=== PATIENT | female | born 1985 | race Caucasian/White ===

== ENCOUNTER 2019-05-25 18:56 | Emergency (ER) | payer BC ==
[2019-05-25] MEDS ORDERED: Lactated Ringers 1,000 ML IV ONE (20:39)
--- NOTE | 2019-05-25 20:45 | EDM.PDOC ---
ED HPI GENERAL MEDICAL PROBLEM - General Chief Complaint: Neurological Problem Stated Complaint: HAD A SEIZURE AND NOT FEELING WELL Time Seen by Provider: 05/25/19 20:07 Source of Information: Reports: Patient, Other (Friend) History Limitations: Reports: No Limitations - History of Present Illness INITIAL COMMENTS - FREE TEXT/NARRATIVE: Mrs. Hathaway is a 34-year-old woman with a past medical history significant for epilepsy since 23 years of age, of unknown cause, along with anxiety and depression. The patient takes Depakote 1500 mg every evening, along with escitalopram and lorazepam, prescribed by a Neurologist in [place], however, the patient has not established a Neurologist since moving to this area in November 2018. She states that she has had both CTs and MRIs of her brain in the past, with the most recent MRI approximately 2012. She states that prior imaging studies have shown that she has an enlarged horn, and enlarged cerebral vein, and a benign cyst, but that none of these are thought to be the cause of her epilepsy. The patient now presents to the ED stating that she suffered an unwitnessed seizure Saturday night/Saturday morning, 05/22/2019 - 05/23/2019. Since then, she reports a decreased appetite with decreased oral intake, lateral lower back and flank pain, worse on the left since 05/24/2018, episodes of rapid palpitations, central chest pain for the last 2 hours, and left shoulder and left upper extremity numbness that developed after she arrived to the ED tonight. She also reports that she gets frequent tinnitus, and been experiencing that all day today. He reports having watery diarrhea today. She reports a 40 pound weight gain over the past 5 months. She states that she gets frequent headaches, and has one now. No recent fever, chills, cough, dyspnea, nausea, vomiting, constipation, urinary symptoms, or rash. The patient reports that she typically has a seizure about twice a month, with the most recent one, prior to the one on Saturday night, being on 05/15/2019. She states that she has been compliant with her Depakote, and that the last time she skipped a dose was probably about 2 weeks ago. She denies recenct sleep deprivation or increased stress in her life. She last smoked marijuana on . No recent excessive alcohol. The patient is an appointment to establish a PCP at [facility] on 05/27/2019. She does not currently have a Neurologist. She has not received an influenza vaccine this season, and declined an offer for one here today. - Related Data Allergies Allergy/AdvReac Type Severity Reaction Status Date / Time carbamazepine [From Tegretol] Allergy Rash Verified 05/25/19 19:09 phenytoin [From Dilantin] Allergy Rash Verified 05/25/19 19:09 dilepital Allergy Rash Uncoded 05/25/19 19:09 Home Meds: Home Meds Divalproex Sodium [Depakote] 1,500 mg PO DAILY 05/25/19 [History] Escitalopram [Lexapro] 20 mg PO DAILY 05/25/19 [History] Past Medical History Neurological History: Reports: Seizure Psychiatric History: Reports: Anxiety, Depression Social & Family History - Tobacco Use Smoking Status *Q: Current Every Day Smoker Years of Tobacco use: 11 Packs/Tins Daily: 1 - Caffeine Use Caffeine Use: Reports: Coffee, Energy Drinks, Soda - Alcohol Use Alcohol Use History: Yes Alcohol Use Frequency: Socially - Recreational Drug Use Recreational Drug Use: Yes Drug Use in Last 12 Months: Yes Recreational Drug Type: Reports: Marijuana/Hashish (last smoked 05/19/2019) - Living Situation & Occupation Living situation: Reports: (), with Family Occupation: Employed (Voice Engineer) ED ROS GENERAL - Review of Systems Review Of Systems: Comprehensive ROS is negative, except as noted in HPI. ED EXAM, GENERAL - Physical Exam Exam: See Below Exam Limited By: No Limitations General Appearance: Alert, WD/WN, No Apparent Distress Eye Exam: Bilateral Eye: EOMI, Normal Inspection, PERRL Ears: Normal External Exam, Normal Canal, Hearing Grossly Normal, Normal TMs Nose: Normal Inspection, Normal Mucosa, No Blood Throat/Mouth: Normal Inspection, Normal Lips, Normal Teeth, Normal Gums, Normal Oropharynx, Normal Voice, No Airway Compromise Head: Atraumatic, Normocephalic Neck: Normal Inspection, Supple, Non-Tender, Full Range of Motion. No: Lymphadenopathy (L), Lymphadenopathy (R) Respiratory/Chest: No Respiratory Distress, Lungs Clear, Normal Breath Sounds, No Accessory Muscle Use Cardiovascular: Normal Peripheral Pulses, Regular Rate, Rhythm, No Edema, No Gallop, No JVD, No Murmur, No Rub Peripheral Pulses: 4+: Radial (L), Radial (R) GI/Abdominal: Normal Bowel Sounds, Soft, No Organomegaly, No Distention, No Abnormal Bruit, No Mass, Tender (Mild, suprapubic only. Nontender elsewhere.) (Female) Exam: Deferred Rectal (Female) Exam: Deferred Back Exam: Normal Inspection, Full Range of Motion. No: CVA Tenderness (L), CVA Tenderness (R) Extremities: Normal Inspection, Normal Range of Motion, No Pedal Edema, Normal Capillary Refill Neurological: Alert, Oriented, CN II-XII Intact, Normal Cognition, No Motor/ Sensory Deficits Psychiatric: Flat Affect Skin Exam: Warm, Dry, Intact, Normal Color, No Rash EKG INTERPRETATION EKG Date: 05/25/19 Time: 20:54 Rhythm: NSR Rate (Beats/Min): 97 [place]: Normal P-Wave: Enlarged (LAE) QRS: Normal ST-T: Normal QT: Normal Comparison: NA - No Prior EKG Course - Vital Signs Last Recorded V/S: Last Vital Signs Temp 36.7 C 05/25/19 19:06 Pulse 102 H 05/25/19 19:06 Resp 16 05/25/19 19:06 BP 142/101 H 05/25/19 19:06 Pulse Ox 100 05/25/19 19:06 Orthostatic Blood Pressure [ 102/87 Standing] Orthostatic Blood Pressure [ 100/56 Supine] - Orders/Labs/Meds Orders: Active Orders 24 hr Category Date Time Status EKG Documentation Completion [RC] STAT Care 05/25/19 20:41 Active Orthostatic Vital Signs [RC] STAT Care 05/25/19 20:41 Active Labs: Laboratory Tests 05/25/19 05/25/19 05/25/19 Range/Units 20:49 20:49 20:49 WBC 8.64 (3.98-10.04) K/mm3 RBC 4.22 (3.98-5.22) M/mm3 Hgb 13.2 (11.2-15.7) gm/dl Hct 39.2 (34.1-44.9) % MCV 92.9 (79.4-94.8) fl MCH 31.3 (25.6-32.2) pg MCHC 33.7 (32.2-35.5) g/dl RDW Std Deviation 41.6 (36.4-46.3) fL Plt Count 269 (182-369) K/mm3 MPV 9.2 L (9.4-12.3) fl Neut % (Auto) 58.3 (34.0-71.1) % Lymph % (Auto) 25.5 (19.3-51.7) % [place] % (Auto) 13.8 H (4.7-12.5) % Eos % (Auto) 2.1 (0.7-5.8) Baso % (Auto) 0.2 (0.1-1.2) % Neut # (Auto) 5.04 (1.56-6.13) K/mm3 Lymph # (Auto) 2.20 (1.18-3.74) K/mm3 [place] # (Auto) 1.19 H (0.24-0.36) K/mm3 Eos # (Auto) 0.18 (0.04-0.36) K/mm3 Baso # (Auto) 0.02 (0.01-0.08) K/mm3 Sodium 139 (136-145) mEq/L Potassium 3.8 (3.5-5.1) mEq/L Chloride 100 (98-107) mEq/L Carbon Dioxide 26 (21-32) mEq/L Anion Gap 16.8 H (5-15) BUN 11 (7-18) mg/dL Creatinine 0.6 (0.55-1.02) mg/dL Est Cr Clr Drug Dosing 115.16 mL/min Estimated GFR (MDRD) > 60 (>60) mL/min BUN/Creatinine Ratio 18.3 H (14-18) Glucose 91 (74-106) mg/dL Calcium 9.2 (8.5-10.1) mg/dL Magnesium 2.0 (1.8-2.4) mg/dl Total Bilirubin 0.2 (0.2-1.0) mg/dL AST 26 (15-37) U/L ALT 38 (14-59) U/L Alkaline Phosphatase 47 (46-116) U/L Total Protein 8.0 (6.4-8.2) g/dl Albumin 3.9 (3.4-5.0) g/dl Globulin 4.1 gm/dL Albumin/Globulin Ratio 1.0 (1-2) TSH 3rd Generation 3.415 (0.358-3.74) uIU/mL Urine Color (Yellow) Urine Appearance (Clear) Urine pH (5.0-8.0) Ur Specific [place] (1.005-1.030) Urine Protein (Negative) Urine Glucose (UA) (Negative) Urine Ketones (Negative) Urine Occult Blood (Negative) Urine Nitrite (Negative) Urine Bilirubin (Negative) Urine Urobilinogen (0.2-1.0) Ur Leukocyte Esterase (Negative) Urine RBC (0-5) /hpf Urine WBC (0-5) /hpf Ur Squamous Epith Cells (0-5) /hpf Urine Bacteria (FEW) /hpf Urine Mucus (FEW) /hpf Urine HCG, Qual (NEGATIVE) Valproic Acid 25.0 L (50.0-100.0) ug/mL 05/25/19 05/25/19 Range/Units 22:33 22:35 WBC (3.98-10.04) K/mm3 RBC (3.98-5.22) M/mm3 Hgb (11.2-15.7) gm/dl Hct (34.1-44.9) % MCV (79.4-94.8) fl MCH (25.6-32.2) pg MCHC (32.2-35.5) g/dl RDW Std Deviation (36.4-46.3) fL Plt Count (182-369) K/mm3 MPV (9.4-12.3) fl Neut % (Auto) (34.0-71.1) % Lymph % (Auto) (19.3-51.7) % [place] % (Auto) (4.7-12.5) % Eos % (Auto) (0.7-5.8) Baso % (Auto) (0.1-1.2) % Neut # (Auto) (1.56-6.13) K/mm3 Lymph # (Auto) (1.18-3.74) K/mm3 [place] # (Auto) (0.24-0.36) K/mm3 Eos # (Auto) (0.04-0.36) K/mm3 Baso # (Auto) (0.01-0.08) K/mm3 Sodium (136-145) mEq/L Potassium (3.5-5.1) mEq/L Chloride (98-107) mEq/L Carbon Dioxide (21-32) mEq/L Anion Gap (5-15) BUN (7-18) mg/dL Creatinine (0.55-1.02) mg/dL Est Cr Clr Drug Dosing mL/min Estimated GFR (MDRD) (>60) mL/min BUN/Creatinine Ratio (14-18) Glucose (74-106) mg/dL Calcium (8.5-10.1) mg/dL Magnesium (1.8-2.4) mg/dl Total Bilirubin (0.2-1.0) mg/dL AST (15-37) U/L ALT (14-59) U/L Alkaline Phosphatase (46-116) U/L Total Protein (6.4-8.2) g/dl Albumin (3.4-5.0) g/dl Globulin gm/dL Albumin/Globulin Ratio (1-2) TSH 3rd Generation (0.358-3.74) uIU/mL Urine Color Yellow (Yellow) Urine Appearance Clear (Clear) Urine pH 7.0 (5.0-8.0) Ur Specific [place] 1.015 (1.005-1.030) Urine Protein Negative (Negative) Urine Glucose (UA) Negative (Negative) Urine Ketones Negative (Negative) Urine Occult Blood Negative (Negative) Urine Nitrite Negative (Negative) Urine Bilirubin Negative (Negative) Urine Urobilinogen 0.2 (0.2-1.0) Ur Leukocyte Esterase Negative (Negative) Urine RBC 0-5 (0-5) /hpf Urine WBC 0-5 (0-5) /hpf Ur Squamous Epith Cells 0-5 (0-5) /hpf Urine Bacteria Occasional (FEW) /hpf Urine Mucus Not seen (FEW) /hpf Urine HCG, Qual Negative (NEGATIVE) Valproic Acid (50.0-100.0) ug/mL Meds: Medications Discontinued Medications Generic Name Dose Route Start Last Admin Trade Name Freq PRN Reason Stop Dose Admin Divalproex Sodium 500 mg 05/26/19 00:00 Depakote PO 05/26/19 00:01 ONETIME ONE Divalproex Sodium 250 mg 05/26/19 00:00 Divalproex Sodium PO 05/26/19 00:01 ONETIME ONE Lactated Ringer's 1,000 mls @ 999 mls/hr 05/25/19 20:39 05/25/19 21:05 Ringers, Lactated IV 05/25/19 21:39 999 mls/hr .BOLUS ONE Administration - Re-Assessments/Exams Free Text/Narrative Re-Assessment/Exam: 05/25/19 20:40 As per the HPI, the patient has nonspecific symptoms of malaise following an epileptic seizure 3 nights ago. Her physical and neurologic examination are normal. I have ordered a workup that includes some blood work, a urinalysis, a urine test, orthostatics, and an ECG. In the meantime, the patient will receive some IV fluid. As the patient's neurologic examination is normal, I do not see an indication for a CT scan of the head at this time; I will, however, refer the patient to Neurology, who may want to obtain a baseline MRI of the patient's brain. This way, we can avoid unnecessary radiation to the patient. 05/25/19 23:07 The patient's CBC is unremarkable. Her CMP is remarkable for an anion gap slightly elevated at 16.8, but with a bicarbonate normal at 26. The remainder of her CMP is unremarkable. Her magnesium level is within normal limits at 2.0. Her TSH is within normal limits at 3.415. Her urinalysis is unremarkable. Her urine test is negative. 05/25/19 23:18 The patient is not orthostatic. 05/26/19 00:01 The patient's valproic acid level has returned subtherapeutic at 25. I have ordered 750 mg of oral Depakote. The patient may safely be discharged home, but I will recommend that she increase her daily dose from 1500 mg daily to 2000 mg daily. As above, I will refer her to Neurology in [place]. 05/26/19 00:08 Test results discussed with the patient and her friend. The patient states that she ordinarily takes her Depakote around 8:00 every evening, but, for reasons unclear, she did not take any tonight, which would explain her subtherapeutic level. I have therefore canceled the extra dose of Depakote, and am not recommending that she increase her daily dose. The remainder of her workup is unremarkable, and does not explain her generalized malaise, however, her malaise is unlikely related to her recent seizure. The patient may be fighting a viral illness. I will refer her to Neurology in [place]. Departure - Departure Time of Disposition: 00:09 Disposition: Home, Self-Care 01 Condition: Good Clinical Impression: Epileptic seizure, Malaise - Discharge Information *PRESCRIPTION DRUG MONITORING PROGRAM REVIEWED*: Not Applicable *COPY OF PRESCRIPTION DRUG MONITORING REPORT IN PATIENT KARTHIK: Not Applicable Instructions: Seizure, Adult Referrals: PCP,None [Primary Care Provider] - Forms: ED Department Discharge Additional Instructions: You were seen in the emergency room after experiencing decreased appetite, lower back and flank pain, palpitations, chest pain, left shoulder pain, left arm numbness, and ringing in your ears, following a seizure suffered Saturday night. Workup in the ER included blood work, a urinalysis, a urine test, positional blood pressure checks, and an ECG. Your entire workup was unremarkable, and does not explain the cause of your symptoms. Your valproic acid (Depakote) level was found to be subtherapeutic at 25, but this is expected, since you have not taken your Depakote tonight. Based on your history, physical exam, and ER tests, your likely suffering from a viral illness. We recommend that you follow up with Sweetie Roque, Neurology mid-level at [facility], at the next available appointment. In the meantime, continue to take your Depakote as prescribed. If any other problems, please do not hesitate to return to the ER. Sepsis Event Note - Evaluation Sepsis Screening Result: No Definite Risk - Focused Exam Vital Signs: Vital Signs Temp Pulse Resp BP Pulse Ox 05/25/19 19:06 36.7 C 102 H 16 142/101 H 100 Date Exam was Performed: 05/26/19 Time Exam was Performed: 02:25 - My Orders Last 24 Hours: My Active Orders 05/25/19 20:41 EKG Documentation Completion [RC] STAT Orthostatic Vital Signs [RC] STAT - Assessment/Plan Last 24 Hours: My Active Orders 05/25/19 20:41 EKG Documentation Completion [RC] STAT Orthostatic Vital Signs [RC] STAT
[2019-05-26] MEDS ORDERED: Divalproex Sodium Delayed-Release 250 MG Tab.CR PO ONE
[2019-05-26] MEDS ORDERED: Divalproex Sodium Delayed-Release 500 MG Tab.CR PO ONE
== END 2019-05-26 00:23 | disposition home or self-care (01) ==
LOC: JD.ED 18:56
DX: G40.909 Epilepsy, unspecified, not intractable, without status epilepticus (principal); R53.81 Other malaise; F41.9 Anxiety disorder, unspecified; F32.9 Major depressive disorder, single episode, unspecified; F17.210 Nicotine dependence, cigarettes, uncomplicated; Z88.8 Allergy status to other drugs, medicaments and biological substances; Z79.899 Other long term (current) drug therapy
CPT/HCPCS: 36415; 80053; 80164; 81001; 81025; 83735; 84443; 85025; 93005; 96360; 99284; J7120; 93010

== ENCOUNTER 2019-07-07 13:40 | Emergency (ER) | payer BC ==
--- NOTE | 2019-07-07 14:52 | EDM.PDOC ---
ED HPI GENERAL MEDICAL PROBLEM - General Chief Complaint: Neurological Problem Stated Complaint: SEIZURES X 3 DAYS/HX OF SEIZURES Time Seen by Provider: 07/07/19 13:57 Source of Information: Reports: Patient History Limitations: Reports: No Limitations - History of Present Illness INITIAL COMMENTS - FREE TEXT/NARRATIVE: The patient presents because of seizures. She has a history of seizures and she has been on depakote for years. She has not had her level checked and there has been no adjustments to her dose. She says she has gained about 40 pounds in the past few months. She says in the past few days she has had a couple seizures. They will happen at night. She will wake up sore and have abrasions on her tongue. She has not been drinking alcohol. She feels like she is getting enough sleep. She has no fever, chills, cough, chest pain, shortness of breath, abdominal pain. She just feels weak and not good. Onset: Gradual Duration: Day(s): Severity: Moderate Improves with: Reports: None Worsens with: Reports: None Associated Symptoms: Reports: No Other Symptoms Other Treatments NICKER AND BREAKER: none - Related Data Allergies Allergy/AdvReac Type Severity Reaction Status Date / Time carbamazepine [From Tegretol] Allergy Rash Verified 05/25/19 19:09 phenytoin [From Dilantin] Allergy Rash Verified 05/25/19 19:09 dilepital Allergy Rash Uncoded 05/25/19 19:09 Home Meds: Home Meds Divalproex Sodium [Depakote] 1,500 mg PO BEDTIME 05/25/19 [History] Escitalopram [Lexapro] 20 mg PO DAILY 05/25/19 [History] Past Medical History Neurological History: Reports: Seizure Other Neuro History: epilepsy Psychiatric History: Reports: Anxiety, Depression Social & Family History - Tobacco Use Smoking Status *Q: Current Every Day Smoker Years of Tobacco use: 10 Packs/Tins Daily: 0.5 - Caffeine Use Caffeine Use: Reports: Coffee, Soda - Recreational Drug Use Recreational Drug Use: No - Living Situation & Occupation Living situation: Reports: (), with Family 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[employer]) ED ROS GENERAL - Review of Systems Review Of Systems: See Below Constitutional: Reports: Weakness HEENT: Reports: No Symptoms Respiratory: Reports: No Symptoms Cardiovascular: Reports: No Symptoms Endocrine: Reports: No Symptoms GI/Abdominal: Reports: No Symptoms : Reports: No Symptoms Musculoskeletal: Reports: No Symptoms Skin: Reports: No Symptoms Neurological: Reports: Seizure - Physical Exam Exam: See Below Exam Limited By: No Limitations General Appearance: Alert, No Apparent Distress Ears: Normal External Exam Nose: Normal Inspection Head Exam: Atraumatic, Normocephalic Neck: Normal Inspection, Supple, Non-Tender Respiratory/Chest: No Respiratory Distress, Lungs Clear, Normal Breath Sounds Cardiovascular: Regular Rate, Rhythm, No Edema, No Murmur GI/Abdominal: Soft, Non-Tender, No Organomegaly, No Mass Neuro Exam (Abbreviated): Alert, Oriented, No Motor/Sensory Deficits Course - Vital Signs Last Recorded V/S: Last Vital Signs Temp 98.2 F 07/07/19 13:47 Pulse 79 07/07/19 13:47 Resp 13 07/07/19 13:47 BP 117/72 07/07/19 13:47 Pulse Ox 100 07/07/19 13:47 - Orders/Labs/Meds Orders: Active Orders 24 hr Category Date Time Status Cardiac Monitoring [RC] . DIRECTED Care 07/07/19 14:19 Active Labs: Laboratory Tests 07/07/19 07/07/19 Range/Units 14:54 14:54 WBC 7.48 (3.98-10.04) K/mm3 RBC 4.43 (3.98-5.22) M/mm3 Hgb 13.5 (11.2-15.7) gm/dl Hct 41.1 (34.1-44.9) % MCV 92.8 (79.4-94.8) fl MCH 30.5 (25.6-32.2) pg MCHC 32.8 (32.2-35.5) g/dl RDW Std Deviation 44.4 (36.4-46.3) fL Plt Count 196 (182-369) K/mm3 MPV 10.2 (9.4-12.3) fl Neut % (Auto) 59.4 (34.0-71.1) % Lymph % (Auto) 28.5 (19.3-51.7) % [place] % (Auto) 10.7 (4.7-12.5) % Eos % (Auto) 1.2 (0.7-5.8) Baso % (Auto) 0.1 (0.1-1.2) % Neut # (Auto) 4.44 (1.56-6.13) K/mm3 Lymph # (Auto) 2.13 (1.18-3.74) K/mm3 [place] # (Auto) 0.80 H (0.24-0.36) K/mm3 Eos # (Auto) 0.09 (0.04-0.36) K/mm3 Baso # (Auto) 0.01 (0.01-0.08) K/mm3 Sodium 139 (136-145) mEq/L Potassium 4.0 (3.5-5.1) mEq/L Chloride 103 (98-107) mEq/L Carbon Dioxide 26 (21-32) mEq/L Anion Gap 14.0 (5-15) BUN 15 (7-18) mg/dL Creatinine 0.6 (0.55-1.02) mg/dL Est Cr Clr Drug Dosing 110.32 mL/min Estimated GFR (MDRD) > 60 (>60) mL/min BUN/Creatinine Ratio 25.0 H (14-18) Glucose 86 (74-106) mg/dL Calcium 8.9 (8.5-10.1) mg/dL Magnesium 2.1 (1.8-2.4) mg/dl Total Bilirubin 0.3 (0.2-1.0) mg/dL AST 14 L (15-37) U/L ALT 20 (14-59) U/L Alkaline Phosphatase 44 L (46-116) U/L Total Protein 7.4 (6.4-8.2) g/dl Albumin 3.7 (3.4-5.0) g/dl Globulin 3.7 gm/dL Albumin/Globulin Ratio 1.0 (1-2) Valproic Acid 68.0 (50.0-100.0) ug/mL - Re-Assessments/Exams Free Text/Narrative Re-Assessment/Exam: 07/07/19 15:58 Her CBC and CMP look good. Her valproic acid is normal at 68. I will discharge her home. Departure - Departure Time of Disposition: 16:00 Disposition: Home, Self-Care 01 Condition: Good Clinical Impression: Epileptic seizure Qualifiers: Epilepsy type: unspecified Intractability: not intractable Status epilepticus: without status epilepticus Qualified Code(s): G40.909 - Epilepsy, unspecified, not intractable, without status epilepticus - Discharge Information *PRESCRIPTION DRUG MONITORING PROGRAM REVIEWED*: Not Applicable *COPY OF PRESCRIPTION DRUG MONITORING REPORT IN PATIENT KARTHIK: Not Applicable Referrals: PCP,None [Primary Care Provider] - Ameena Li PA-C [Physician Fastener Technologist] - 1 Week Forms: ED Department Discharge Additional Instructions: Take your medication as prescribed. Eat a well balanced diet. Get plenty of rest. Avoid alcohol like you have been doing. Follow up with Ameena Li and your neurologist. Sepsis Event Note - Evaluation Sepsis Screening Result: No Definite Risk - Focused Exam Vital Signs: Vital Signs Temp Pulse Resp BP Pulse Ox 07/07/19 13:47 98.2 F 79 13 117/72 100 Date Exam was Performed: 07/07/19 Time Exam was Performed: 15:54 - My Orders Last 24 Hours: My Active Orders 07/07/19 14:19 Cardiac Monitoring [RC] . DIRECTED - Assessment/Plan Last 24 Hours: My Active Orders 07/07/19 14:19 Cardiac Monitoring [RC] . DIRECTED
== END 2019-07-07 16:26 | disposition home or self-care (01) ==
LOC: JD.ED 13:40
DX: G40.909 Epilepsy, unspecified, not intractable, without status epilepticus (principal); F41.9 Anxiety disorder, unspecified; F32.9 Major depressive disorder, single episode, unspecified; F17.210 Nicotine dependence, cigarettes, uncomplicated; Z79.899 Other long term (current) drug therapy; Z88.8 Allergy status to other drugs, medicaments and biological substances
CPT/HCPCS: 36415; 80053; 80164; 83735; 85025; 99283; 99284

== ENCOUNTER 2019-09-07 02:13 | Emergency (ER) | payer BC, OTHER ==
[2019-09-07] MEDS ORDERED: LORazepam 1 MG Tab PO ONE (02:48)
--- NOTE | 2019-09-07 02:48 | EDM.PDOC ---
ED HPI GENERAL MEDICAL PROBLEM - General Chief Complaint: Neuro Symptoms/Deficits Stated Complaint: SEIZURE ON SATURDAY STILL FEELING OFF CHEST PAIN Time Seen by Provider: 09/07/19 02:24 Source of Information: Reports: Patient History Limitations: Reports: No Limitations - History of Present Illness INITIAL COMMENTS - FREE TEXT/NARRATIVE: Ms. Hathaway is a a pleasant 34-year-old woman with a past medical history significant for epilepsy since 23 years of age, of unknown cause, along with anxiety and depression. The patient takes Depakote 1500 mg every day, along with escitalopram. She states that she missed 1 dose of both of her medications either Saturday or of this week. The patient now presents to the ED stating that she had a witnessed seizure night, 09/03/2019. Starting Saturday morning, 09/05/2019, she developed head pressure, a burning sensation in her chest that goes into her back, tinnitus, tingling of her hands and feet, difficulty swallowing, abdominal pain , dyspnea, and lightheadedness. She states that she had similar symptoms about 1 year ago. The patient denies recent fever, chills, sore throat, ear pain, nasal or sinus congestion, cough, palpitations, nausea, vomiting, constipation, diarrhea, urinary symptoms, recent weight gain or weight loss, recent bloody bowel movements or black bowel movements, recent joint aches, headaches, or rashes. Here in the ED, the patient is found to be hemodynamically stable, afebrile, saturating 93% on room air. The patient's PCP is Dr. Sheri Waters. She does not recall the name of her Neurologist in [place]. She states that she has an appointment to see him on 11/13/2019. Chest Pain Score (Numeric/FACES): 4 - Related Data Allergies Allergy/AdvReac Type Severity Reaction Status Date / Time carbamazepine [From Tegretol] Allergy Rash Verified 09/07/19 02:22 phenytoin [From Dilantin] Allergy Rash Verified 09/07/19 02:22 dilepital Allergy Rash Uncoded 09/07/19 02:22 Home Meds: Home Meds Divalproex Sodium [Depakote] 1,500 mg PO BEDTIME 05/25/19 [History] Escitalopram [Lexapro] 20 mg PO DAILY 01/06/20 [History] Past Medical History Neurological History: Reports: Seizure Psychiatric History: Reports: Anxiety, Depression Social & Family History - Tobacco Use Smoking Status *Q: Current Every Day Smoker Years of Tobacco use: 11 Packs/Tins Daily: 0.5 - Caffeine Use Caffeine Use: Reports: Coffee, Soda - Alcohol Use Alcohol Use History: Yes Alcohol Use Frequency: Socially - Recreational Drug Use Recreational Drug Use: Yes Drug Use in Last 12 Months: Yes Recreational Drug Type: Reports: Marijuana/Hashish (smokes daily) - Living Situation & Occupation Living situation: Reports: , with Family 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 ED EXAM, GENERAL - Physical Exam Exam: See Below Exam Limited By: No Limitations General Appearance: Alert, WD/WN, No Apparent Distress Eye Exam: Bilateral Eye: EOMI, Normal Inspection, PERRL Ears: Normal External Exam, Normal Canal, Hearing Grossly Normal, Normal TMs Nose: Normal Inspection, Normal Mucosa, No Blood Throat/Mouth: Normal Inspection, Normal Lips, Normal Teeth, Normal Gums, Normal Oropharynx, Normal Voice, No Airway Compromise Head: Atraumatic, Normocephalic Neck: Normal Inspection, Supple, Non-Tender, Full Range of Motion. No: Lymphadenopathy (L), Lymphadenopathy (R) Respiratory/Chest: No Respiratory Distress, Lungs Clear, Normal Breath Sounds, No Accessory Muscle Use Cardiovascular: Normal Peripheral Pulses, Regular Rate, Rhythm, No Edema, No Gallop, No JVD, No Murmur, No Rub Peripheral Pulses: 4+: Radial (L), Radial (R) GI/Abdominal: Normal Bowel Sounds, Soft, Non-Tender, No Organomegaly, No Distention, No Abnormal Bruit, No Mass (Female) Exam: Deferred Rectal (Female) Exam: Deferred Back Exam: Normal Inspection, Full Range of Motion, NT Extremities: Normal Inspection, Normal Range of Motion, No Pedal Edema, Normal Capillary Refill Neurological: Alert, Oriented, CN II-XII Intact, Normal Cognition, No Motor/ Sensory Deficits (less than full effort to strength testing) Psychiatric: Depressed Mood Skin Exam: Warm, Dry, Intact, Normal Color, No Rash EKG INTERPRETATION EKG Date: 09/07/19 Time: 02:58 Rhythm: NSR Rate (Beats/Min): 85 [place]: Normal P-Wave: Enlarged (LAE) QRS: Normal ST-T: Normal QT: Normal Comparison: No Change (05/25/2019) Course - Vital Signs Last Recorded V/S: Last Vital Signs Temp 37.1 C 09/07/19 02:20 Pulse 93 09/07/19 02:20 Resp 13 09/07/19 02:20 BP 134/83 09/07/19 02:20 Pulse Ox 92 L 09/07/19 02:20 Orthostatic Blood Pressure [ 129/80 Standing] Orthostatic Blood Pressure [ 114/80 Supine] - Orders/Labs/Meds Orders: Active Orders 24 hr Category Date Time Status EKG Documentation Completion [RC] STAT Care 09/07/19 02:43 Active Orthostatic Vital Signs [RC] STAT Care 09/07/19 02:43 Active Chest 2V [CR] Stat Exams 09/07/19 02:43 Taken Labs: Laboratory Tests 09/07/19 09/07/19 09/07/19 Range/Units 02:56 02:56 02:56 WBC 9.94 (3.98-10.04) K/mm3 RBC 4.06 (3.98-5.22) M/mm3 Hgb 12.4 (11.2-15.7) gm/dl Hct 37.9 (34.1-44.9) % MCV 93.3 (79.4-94.8) fl MCH 30.5 (25.6-32.2) pg MCHC 32.7 (32.2-35.5) g/dl RDW Std Deviation 48.1 H (36.4-46.3) fL Plt Count 276 D (182-369) K/mm3 MPV 9.7 (9.4-12.3) fl Neutrophils % (Manual) 60 (40-60) % Band Neutrophils % 0 (0-10) % Lymphocytes % (Manual) 28 (20-40) % Atypical Lymphs % 0 % Monocytes % (Manual) 8 (2-10) % Eosinophils % (Manual) 4 (0.7-5.8) % Basophils % (Manual) 0 L (0.1-1.2) Platelet Estimate Adequate RBC Morph Comment Normal D-Dimer, Quantitative < 0.19 L (0.19-0.50) mg/L Puncture Site ABG pH (7.35-7.45) ABG pCO2 (35.0-45.0) mmHg ABG pO2 (80.0-100.0) mmHg ABG HCO3 (22.0-26.0) meq/L ABG O2 Saturation (96.0-97.0) % ABG Base Excess (-2-2.0) Reagan Test A-a Gradient mmHg O2 Delivery Device FiO2 (21.00-100.00) % Sodium 141 (136-145) mEq/L Potassium 3.6 (3.5-5.1) mEq/L Chloride 103 (98-107) mEq/L Carbon Dioxide 26 (21-32) mEq/L Anion Gap 15.6 H (5-15) BUN 9 (7-18) mg/dL Creatinine 0.6 (0.55-1.02) mg/dL Est Cr Clr Drug Dosing 115.16 mL/min Estimated GFR (MDRD) > 60 (>60) mL/min BUN/Creatinine Ratio 15.0 (14-18) Glucose 103 (74-106) mg/dL Calcium 9.0 (8.5-10.1) mg/dL Phosphorus 3.5 (2.6-4.7) mg/dL Magnesium 1.7 L (1.8-2.4) mg/dl Total Bilirubin 0.2 (0.2-1.0) mg/dL AST 13 L (15-37) U/L ALT 16 (14-59) U/L Alkaline Phosphatase 47 (46-116) U/L Troponin I < 0.017 (0.00-0.056) ng/mL NT-Pro-B Natriuret Pep (0-125) pg/mL Total Protein 7.3 (6.4-8.2) g/dl Albumin 3.6 (3.4-5.0) g/dl Globulin 3.7 gm/dL Albumin/Globulin Ratio 1.0 (1-2) TSH 3rd Generation 4.912 H (0.358-3.74) uIU/mL Urine Color (Yellow) Urine Appearance (Clear) Urine pH (5.0-8.0) Ur Specific [place] (1.005-1.030) Urine Protein (Negative) Urine Glucose (UA) (Negative) Urine Ketones (Negative) Urine Occult Blood (Negative) Urine Nitrite (Negative) Urine Bilirubin (Negative) Urine Urobilinogen (0.2-1.0) Ur Leukocyte Esterase (Negative) Urine RBC (0-5) /hpf Urine WBC (0-5) /hpf Ur Squamous Epith Cells (0-5) /hpf Urine Bacteria (FEW) /hpf Urine Mucus (FEW) /hpf Urine HCG, Qual (NEGATIVE) Valproic Acid 72.5 (50.0-100.0) ug/mL 09/07/19 09/07/19 09/07/19 Range/Units 02:56 03:05 03:14 WBC (3.98-10.04) K/mm3 RBC (3.98-5.22) M/mm3 Hgb (11.2-15.7) gm/dl Hct (34.1-44.9) % MCV (79.4-94.8) fl MCH (25.6-32.2) pg MCHC (32.2-35.5) g/dl RDW Std Deviation (36.4-46.3) fL Plt Count (182-369) K/mm3 MPV (9.4-12.3) fl Neutrophils % (Manual) (40-60) % Band Neutrophils % (0-10) % Lymphocytes % (Manual) (20-40) % Atypical Lymphs % % Monocytes % (Manual) (2-10) % Eosinophils % (Manual) (0.7-5.8) % Basophils % (Manual) (0.1-1.2) Platelet Estimate RBC Morph Comment D-Dimer, Quantitative (0.19-0.50) mg/L Puncture Site Lt radial ABG pH 7.41 (7.35-7.45) ABG pCO2 42.4 (35.0-45.0) mmHg ABG pO2 81.0 (80.0-100.0) mmHg ABG HCO3 26.4 H (22.0-26.0) meq/L ABG O2 Saturation 96.7 (96.0-97.0) % ABG Base Excess 2.1 H (-2-2.0) Reagan Test Positive A-a Gradient 16 mmHg O2 Delivery Device Room air FiO2 21.00 (21.00-100.00) % Sodium (136-145) mEq/L Potassium (3.5-5.1) mEq/L Chloride (98-107) mEq/L Carbon Dioxide (21-32) mEq/L Anion Gap (5-15) BUN (7-18) mg/dL Creatinine (0.55-1.02) mg/dL Est Cr Clr Drug Dosing mL/min Estimated GFR (MDRD) (>60) mL/min BUN/Creatinine Ratio (14-18) Glucose (74-106) mg/dL Calcium (8.5-10.1) mg/dL Phosphorus (2.6-4.7) mg/dL Magnesium (1.8-2.4) mg/dl Total Bilirubin (0.2-1.0) mg/dL AST (15-37) U/L ALT (14-59) U/L Alkaline Phosphatase (46-116) U/L Troponin I (0.00-0.056) ng/mL NT-Pro-B Natriuret Pep 128 H (0-125) pg/mL Total Protein (6.4-8.2) g/dl Albumin (3.4-5.0) g/dl Globulin gm/dL Albumin/Globulin Ratio (1-2) TSH 3rd Generation (0.358-3.74) uIU/mL Urine Color Yellow (Yellow) Urine Appearance Clear (Clear) Urine pH 6.5 (5.0-8.0) Ur Specific [place] 1.020 (1.005-1.030) Urine Protein Negative (Negative) Urine Glucose (UA) Negative (Negative) Urine Ketones Trace H (Negative) Urine Occult Blood Negative (Negative) Urine Nitrite Negative (Negative) Urine Bilirubin Negative (Negative) Urine Urobilinogen 0.2 (0.2-1.0) Ur Leukocyte Esterase Negative (Negative) Urine RBC 0-5 (0-5) /hpf Urine WBC Not seen (0-5) /hpf Ur Squamous Epith Cells 0-5 (0-5) /hpf Urine Bacteria Not seen (FEW) /hpf Urine Mucus Not seen (FEW) /hpf Urine HCG, Qual (NEGATIVE) Valproic Acid (50.0-100.0) ug/mL 20/20 Range/Units 03:14 WBC (3.98-10.04) K/mm3 RBC (3.98-5.22) M/mm3 Hgb (11.2-15.7) gm/dl Hct (34.1-44.9) % MCV (79.4-94.8) fl MCH (25.6-32.2) pg MCHC (32.2-35.5) g/dl RDW Std Deviation (36.4-46.3) fL Plt Count (182-369) K/mm3 MPV (9.4-12.3) fl Neutrophils % (Manual) (40-60) % Band Neutrophils % (0-10) % Lymphocytes % (Manual) (20-40) % Atypical Lymphs % % Monocytes % (Manual) (2-10) % Eosinophils % (Manual) (0.7-5.8) % Basophils % (Manual) (0.1-1.2) Platelet Estimate RBC Morph Comment D-Dimer, Quantitative (0.19-0.50) mg/L Puncture Site ABG pH (7.35-7.45) ABG pCO2 (35.0-45.0) mmHg ABG pO2 (80.0-100.0) mmHg ABG HCO3 (22.0-26.0) meq/L ABG O2 Saturation (96.0-97.0) % ABG Base Excess (-2-2.0) Reagan Test A-a Gradient mmHg O2 Delivery Device FiO2 (21.00-100.00) % Sodium (136-145) mEq/L Potassium (3.5-5.1) mEq/L Chloride (98-107) mEq/L Carbon Dioxide (21-32) mEq/L Anion Gap (5-15) BUN (7-18) mg/dL Creatinine (0.55-1.02) mg/dL Est Cr Clr Drug Dosing mL/min Estimated GFR (MDRD) (>60) mL/min BUN/Creatinine Ratio (14-18) Glucose (74-106) mg/dL Calcium (8.5-10.1) mg/dL Phosphorus (2.6-4.7) mg/dL Magnesium (1.8-2.4) mg/dl Total Bilirubin (0.2-1.0) mg/dL AST (15-37) U/L ALT (14-59) U/L Alkaline Phosphatase (46-116) U/L Troponin I (0.00-0.056) ng/mL NT-Pro-B Natriuret Pep (0-125) pg/mL Total Protein (6.4-8.2) g/dl Albumin (3.4-5.0) g/dl Globulin gm/dL Albumin/Globulin Ratio (1-2) TSH 3rd Generation (0.358-3.74) uIU/mL Urine Color (Yellow) Urine Appearance (Clear) Urine pH (5.0-8.0) Ur Specific [place] (1.005-1.030) Urine Protein (Negative) Urine Glucose (UA) (Negative) Urine Ketones (Negative) Urine Occult Blood (Negative) Urine Nitrite (Negative) Urine Bilirubin (Negative) Urine Urobilinogen (0.2-1.0) Ur Leukocyte Esterase (Negative) Urine RBC (0-5) /hpf Urine WBC (0-5) /hpf Ur Squamous Epith Cells (0-5) /hpf Urine Bacteria (FEW) /hpf Urine Mucus (FEW) /hpf Urine HCG, Qual Negative (NEGATIVE) Valproic Acid (50.0-100.0) ug/mL Meds: Medications Discontinued Medications Generic Name Dose Route Start Last Admin Trade Name Freq PRN Reason Stop Dose Admin Lorazepam 1 mg 09/07/19 02:48 09/07/19 03:18 Ativan PO 09/07/19 02:49 1 mg ONETIME ONE Administration - Re-Assessments/Exams Free Text/Narrative Re-Assessment/Exam: 09/07/19 02:46 I have ordered a work-up to evaluate for any problems, including blood work, a valproic acid level, an ABG, a urinalysis and urine test, orthostatics , a chest x-ray, and an ECG. In the meantime, the patient will be treated with 1 mg of oral Ativan. 09/07/19 04:00 Two-view chest radiograph appears to be grossly normal. The cardiac silhouette is within normal limits. No pulmonary vascular congestion. No pleural effusions. No focal infiltrate. No pneumothorax. Formal read per the Radiologist pending. The patient is not orthostatic. Her CBC is unremarkable. Her CMP is remarkable for an anion gap slightly elevated at 15.6, but with a bicarbonate normal at 26. The remainder of her CMP is unremarkable. Her magnesium level is slightly depressed at 1.7. Her phosphorus level is normal at 3.5. Her TSH is elevated at 4.912. Her troponin is undetectably low. Her BNP is slightly elevated at 128. Her D-dimer is undetectably low. Her valproic acid level is within therapeutic range at 72.5. Her ABG reflects no acid-base disturbances. Her urinalysis is unremarkable. Her urine test is negative. 09/07/19 04:39 Test results discussed with the patient. As above, today's exhaustive work-up is unremarkable, and does not explain the cause of her symptoms. I believe that she can safely be discharged home, and if her symptoms persist, follow-up with her PCP. 09/07/19 05:13 Notified that the patient returned to the ED, requesting a note to be off work today. Departure - Departure Time of Disposition: 04:40 Disposition: Home, Self-Care 01 Condition: Good Clinical Impression: Malaise - Discharge Information *PRESCRIPTION DRUG MONITORING PROGRAM REVIEWED*: Not Applicable *COPY OF PRESCRIPTION DRUG MONITORING REPORT IN PATIENT KARTHIK: Not Applicable Referrals: Sheri Waters MD [Ordering Only Provider] - Forms: ED Department Discharge, ED Return to Work/School Form Additional Instructions: You were seen in the emergency room for the sensation of head pressure, chest burning into your back, ringing in your ears, tingling in your hands and feet, difficulty swallowing, shortness of breath, abdominal pain, and dizziness. Work-up in the ER included blood work, an arterial blood gas, positional blood pressure checks, a urinalysis, a urine test, a chest x-ray, and an ECG. Your TSH (thyroid-stimulating hormone) was found to be mildly elevated at 4.912 , indicating the possibility that you are hypothyroid. This needs to be rechecked before a diagnosis can be made. The remainder of your work-up was unremarkable, and does not explain the cause of your symptoms. You are not anemic. No significant electrolyte abnormalities were found. You have not suffered a heart attack. You do not have a blood clot in your lungs. You do not have pneumonia. You do not have a collapsed lung. You are not dehydrated. You do not have a urinary tract infection. You are not . Your Depakote level was therapeutic at 72.5. If your symptoms persist, please follow-up with your PCP, Dr. Sheri Waters, for further evaluation. If any other problems, please do not hesitate to return to the ER. Sepsis Event Note - Evaluation Sepsis Screening Result: No Definite Risk - Focused Exam Vital Signs: Vital Signs Temp Pulse Resp BP Pulse Ox 09/07/19 02:20 37.1 C 93 13 134/83 92 L Date Exam was Performed: 09/07/19 Time Exam was Performed: 04:38 - My Orders Last 24 Hours: My Active Orders 09/07/19 02:43 EKG Documentation Completion [RC] STAT Orthostatic Vital Signs [RC] STAT Chest 2V [CR] Stat - Assessment/Plan Last 24 Hours: My Active Orders 09/07/19 02:43 EKG Documentation Completion [RC] STAT Orthostatic Vital Signs [RC] STAT Chest 2V [CR] Stat
--- NOTE | 2019-09-07 07:42 | CR ---
Chest: 2 views of the chest were obtained. Comparison: No previous chest x-ray. Heart size and mediastinum are normal. Lungs are clear with no acute parenchymal change. Bony structures are unremarkable. Impression: 1. Nothing acute is seen on 2 view chest x-ray. Diagnostic code #1 This report was dictated in MDT
== END 2019-09-07 04:53 | disposition home or self-care (01) ==
LOC: JD.ED 02:13
DX: R53.81 Other malaise (principal); F41.9 Anxiety disorder, unspecified; F32.9 Major depressive disorder, single episode, unspecified; F17.210 Nicotine dependence, cigarettes, uncomplicated; Z88.8 Allergy status to other drugs, medicaments and biological substances; Z79.899 Other long term (current) drug therapy
CPT/HCPCS: 36415; 36600; 71046; 80053; 80164; 81001; 81025; 82803; 83735; 83880; 84100; 84443; 84484; 85007; 85027; 85379; 93005; 99284; A9270; 93010

== ENCOUNTER 2019-09-19 16:45 | Emergency (ER) | payer OTHER ==
[2019-09-19] MEDS ORDERED: Dexamethasone 4 MG/ML SDV PO ONE (17:14)
[2019-09-19] MEDS ORDERED: Alum Hydrox/Mag Hydrox/Simeth 30 ML, Lidocaine 2% 15 ML PO ONE ×2 (17:15)
--- NOTE | 2019-09-19 17:16 | EDM.PDOC ---
ED HPI GENERAL MEDICAL PROBLEM - General Chief Complaint: Respiratory Problem Stated Complaint: DIFFICULTY BREATHING AND SWALLOWING Time Seen by Provider: 09/19/19 16:59 Source of Information: Reports: Patient History Limitations: Reports: No Limitations - History of Present Illness INITIAL COMMENTS - FREE TEXT/NARRATIVE: Susana Hathaway is a 34-year-old female who presents the emergency room with chief complaints of difficulty swallowing and feeling like she cannot breathe. Patient reports that she took Augmentin and for a dog bite shortly afterwards she felt like she had something "stuck in her throat." She reports because of the sensation she feels like she cannot take a deep breath. Her respiratory rate is 18 unlabored and she is 98% on room air. She is in no apparent distress at this time. She denies any fever, chills, chest pain. She is talking in full sentences and in no apparent distress. Onset: Today, Sudden Onset Date: 09/19/19 Onset Time: 15:00 Duration: Intermittent Location: Reports: Neck Quality: Reports: Dull Severity: Mild Improves with: Reports: None Worsens with: Reports: None Associated Symptoms: Reports: Shortness of Breath, Other (difficulty swallowing) - Related Data Allergies Allergy/AdvReac Type Severity Reaction Status Date / Time carbamazepine [From Tegretol] Allergy Rash Verified 09/19/19 17:00 phenytoin [From Dilantin] Allergy Rash Verified 09/19/19 17:00 dilepital Allergy Rash Uncoded 09/19/19 17:00 Home Meds: Home Meds Divalproex Sodium [Depakote] 1,500 mg PO BEDTIME 05/25/19 [History] Escitalopram [Lexapro] 20 mg PO DAILY 05/25/19 [History] Past Medical History Neurological History: Reports: Seizure Other Neuro History: epilepsy Psychiatric History: Reports: Anxiety, Depression, Panic Attack - Infectious Disease History Infectious Disease History: Reports: Chicken Pox, Hepatitis A Social & Family History - Family History Family Medical History: Noncontributory - Tobacco Use Smoking Status *Q: Current Every Day Smoker Years of Tobacco use: 11 Packs/Tins Daily: 0.5 - Caffeine Use Caffeine Use: Reports: Coffee - Recreational Drug Use Recreational Drug Use: No - Living Situation & Occupation Living situation: Reports: , with Family 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) ED ROS GENERAL - Review of Systems Review Of Systems: See Below Constitutional: Denies: Fever, Chills HEENT: Reports: No Symptoms Respiratory: Reports: Shortness of Breath Cardiovascular: Denies: Chest Pain Endocrine: Reports: No Symptoms GI/Abdominal: Reports: No Symptoms : Reports: No Symptoms Musculoskeletal: Reports: No Symptoms Skin: Reports: Other (recent dog bite to nose.) Neurological: Reports: Other (history of seizures) Psychiatric: Reports: No Symptoms Hematologic/Lymphatic: Reports: No Symptoms Immunologic: Reports: No Symptoms ED EXAM, GENERAL - Physical Exam Exam: See Below Exam Limited By: No Limitations General Appearance: Alert, WD/WN, No Apparent Distress Throat/Mouth: Normal Inspection, Normal Lips, Normal Teeth, Normal Gums, Normal Oropharynx, Normal Voice, No Airway Compromise Head: Atraumatic, Normocephalic Neck: Normal Inspection, Supple, Non-Tender, Full Range of Motion Respiratory/Chest: No Respiratory Distress, Lungs Clear, Normal Breath Sounds, No Accessory Muscle Use, Chest Non-Tender Cardiovascular: Normal Peripheral Pulses, Regular Rate, Rhythm, No Edema, No Gallop, No JVD, No Murmur, No Rub Neurological: Alert, Oriented, CN II-XII Intact, Normal Cognition, Normal Gait Psychiatric: Normal Affect, Normal Mood Skin Exam: Warm, Dry, Intact, Normal Color, No Rash Lymphatic: No Adenopathy Course - Vital Signs Text/Narrative:: Susana Hathaway female who presents the emergency room chief complaints of difficulty swallowing. She reports that she took her Augmentin earlier today and 30 minutes later she felt like she "has something stuck in her throat." She said because of the sensation she felt like it was hard for her to take a deep breath. Patient is talking in full sentences her saturation is 98% on room air she is in no apparent distress. I do not feel that she needs a neck soft tissue x-ray or a chest x-ray. I will medicate with Decadron and a GI cocktail and reevaluate. Last Recorded V/S: Last Vital Signs Temp 98.0 F 09/19/19 16:57 Pulse 87 09/19/19 16:57 Resp 16 09/19/19 16:57 BP 127/71 09/19/19 16:57 Pulse Ox 99 09/19/19 16:57 - Orders/Labs/Meds Meds: Medications Discontinued Medications Generic Name Dose Route Start Last Admin Trade Name Jose PRN Reason Stop Dose Admin Al Hydroxide/Mg Hydroxide 30 0 ml 09/19/19 17:15 09/19/19 17:20 ml/ Lidocaine HCl 15 ml PO 09/19/19 17:16 45 ml ONETIME ONE Administration Dexamethasone 4 mg 09/19/19 17:14 09/19/19 17:20 Dexamethasone PO 09/19/19 17:15 4 mg ONETIME ONE Administration - Re-Assessments/Exams Free Text/Narrative Re-Assessment/Exam: 09/19/19 17:52 Patient reports that she is feeling better swallowing with no difficulty does not feel the sensation that there is something stuck in her throat. Will discharge home with instructions to continue taking medicine as prescribed. I recommend that she take and break the pills in half when taking them. Instructed patient to take her medication with food and plenty of water. Patient to follow-up with her PCP. Instructed patient to return to the emergency room for any new or acute worsening symptoms. She verbalized understanding and is comfortable with plan for discharge. Patient is stable at time of discharge. Departure - Departure Time of Disposition: 17:53 Disposition: Home, Self-Care 01 Clinical Impression: Esophagitis - Discharge Information Instructions: Esophagitis Referrals: Sheri Waters MD [Primary Care Provider] - Forms: ED Department Discharge Additional Instructions: You were seen and evaluated today for difficulty swallowing. I feel your symptoms maybe due to irritation from the pill you took earlier today. I don't feel you are having a reaction to medication. I recommend you when taking your medication to take it with food and lots of water. Follow up with your PCP. Return to the ER for any new or acute worsening symptoms. Return to the ER for any new or acute worsening symptoms. Sepsis Event Note - Evaluation Sepsis Screening Result: No Definite Risk - Focused Exam Vital Signs: Vital Signs Temp Pulse Resp BP Pulse Ox 09/19/19 16:57 98.0 F 87 16 127/71 99 Date Exam was Performed: 09/19/19 Time Exam was Performed: 17:52
== END 2019-09-19 18:00 | disposition home or self-care (01) ==
LOC: JD.ED 16:45
DX: K20.9 Esophagitis, unspecified (principal); G40.909 Epilepsy, unspecified, not intractable, without status epilepticus; F41.9 Anxiety disorder, unspecified; F32.9 Major depressive disorder, single episode, unspecified; F17.210 Nicotine dependence, cigarettes, uncomplicated; Z88.8 Allergy status to other drugs, medicaments and biological substances; Z79.899 Other long term (current) drug therapy
CPT/HCPCS: 99283; A9270; J1100

== ENCOUNTER 2019-10-13 18:03 | Emergency (ER) | payer OTHER ==
[2019-10-13] MEDS ORDERED: Sodium Chloride 0.9% 10 ML Syringe FLUSH PRN (18:05)
[2019-10-13] MEDS ORDERED: Sodium Chloride 0.9% 1,000 ML IV SCH (18:15)
--- NOTE | 2019-10-13 18:53 | EDM.PDOC ---
ED HPI GENERAL MEDICAL PROBLEM - General Chief Complaint: Neuro Symptoms/Deficits Stated Complaint: [facility] Time Seen by Provider: 10/13/19 18:05 Source of Information: Reports: Patient, EMS History Limitations: Reports: No Limitations - History of Present Illness INITIAL COMMENTS - FREE TEXT/NARRATIVE: The patient presents by [facility] for a seizure. She got off work and was riding public transit back home. They had a stop and the business services sales representative noticed she leaned over and then started shaking. She fell to the floor and hit her head. She has a superficial laceration to the left eyebrow. She was post ictal when EMS arrived. She was more alert by the time she got to the ER. She has a history of seizures. She is on depakote. She has not missed a dose recently. She has been getting enough sleep and enough to eat and drink. She has no fever, chills, cough, congestion, runny nose, chest pain, abdominal pain, nausea or vomiting. She has no numbness or weakness. She did not consume any alcohol recently. Onset: Sudden Duration: Minutes: Location: Reports: Generalized Severity: Moderate Improves with: Reports: None Worsens with: Reports: None Associated Symptoms: Reports: No Other Symptoms - Related Data Allergies Allergy/AdvReac Type Severity Reaction Status Date / Time carbamazepine [From Tegretol] Allergy Rash Verified 09/19/19 17:00 phenytoin [From Dilantin] Allergy Rash Verified 09/19/19 17:00 dilepital Allergy Rash Uncoded 09/19/19 17:00 Home Meds: Home Meds Divalproex Sodium [Depakote] 1,500 mg PO BEDTIME 05/25/19 [History] Past Medical History HEENT History: Reports: Impaired Vision Neurological History: Reports: Seizure Other Neuro History: epilepsy Psychiatric History: Reports: Anxiety, Depression, Panic Attack - Infectious Disease History Infectious Disease History: Reports: Chicken Pox, Hepatitis A Social & Family History - Family History Family Medical History: Noncontributory - Tobacco Use Smoking Status *Q: Current Every Day Smoker Years of Tobacco use: 10 Packs/Tins Daily: 1.5 - Caffeine Use Caffeine Use: Reports: Coffee - Recreational Drug Use Recreational Drug Use: No - Living Situation & Occupation Living situation: Reports: , with Family Occupation: Employed ([employer] at [employer]) ED ROS GENERAL - Review of Systems Review Of Systems: See Below Constitutional: Reports: No Symptoms HEENT: Reports: Other (Laceration to the left lateral eyebrow) Respiratory: Reports: No Symptoms Cardiovascular: Reports: No Symptoms Endocrine: Reports: No Symptoms GI/Abdominal: Reports: No Symptoms : Reports: No Symptoms Musculoskeletal: Reports: No Symptoms - Physical Exam Exam: See Below Exam Limited By: No Limitations General Appearance: Alert, No Apparent Distress Ears: Normal External Exam Nose: Normal Inspection Head Exam: Other (0.5cm superficial laceration to the left lateral eyebrow) Neck: Normal Inspection, Supple, Non-Tender Respiratory/Chest: No Respiratory Distress, Lungs Clear, Normal Breath Sounds Cardiovascular: Regular Rate, Rhythm, No Edema, No Murmur GI/Abdominal: Soft, Non-Tender, No Organomegaly, No Mass Neuro Exam (Abbreviated): Alert, Oriented, No Motor/Sensory Deficits Course - Vital Signs Last Recorded V/S: Last Vital Signs Temp 97.0 F 10/13/19 18:04 Pulse 100 10/13/19 18:04 Resp 16 10/13/19 18:04 BP 106/67 10/13/19 18:04 Pulse Ox 96 10/13/19 18:04 - Orders/Labs/Meds Orders: Active Orders 24 hr Category Date Time Status Cardiac Monitoring [RC] . DIRECTED Care 10/13/19 18:05 Active Peripheral IV Care [RC] . DIRECTED Care 10/13/19 18:05 Active VALPROIC ACID [CHEM] Stat Lab 10/13/19 18:10 Received Sodium Chloride 0.9% [Normal Saline] 1,000 ml Med 10/13/19 18:15 Active IV .BOLUS Sodium Chloride 0.9% [Saline Flush] Med 10/13/19 18:05 Active 10 ml FLUSH ASDIRECTED PRN Peripheral IV Insertion Adult [OM.PC] Stat Oth 10/13/19 18:05 Ordered Medication Orders Sodium Chloride (Normal Saline) 1,000 mls @ 1,000 mls/hr IV .BOLUS GABI Last Admin: 10/13/19 18:19 Dose: 1,000 mls/hr Sodium Chloride (Saline Flush) 10 ml FLUSH ASDIRECTED PRN PRN Reason: Keep Vein Open Last Admin: 10/13/19 18:19 Dose: 10 ml Labs: Laboratory Tests 10/13/19 10/13/19 Range/Units 18:10 18:10 WBC 8.76 (3.98-10.04) K/mm3 RBC 4.24 (3.98-5.22) M/mm3 Hgb 12.7 (11.2-15.7) gm/dl Hct 39.9 (34.1-44.9) % MCV 94.1 (79.4-94.8) fl MCH 30.0 (25.6-32.2) pg MCHC 31.8 L (32.2-35.5) g/dl RDW Std Deviation 46.2 (36.4-46.3) fL Plt Count 280 (182-369) K/mm3 MPV 9.8 (9.4-12.3) fl Neut % (Auto) 44.4 (34.0-71.1) % Lymph % (Auto) 43.5 (19.3-51.7) % Clay % (Auto) 8.3 (4.7-12.5) % Eos % (Auto) 3.4 (0.7-5.8) Baso % (Auto) 0.2 (0.1-1.2) % Neut # (Auto) 3.88 (1.56-6.13) K/mm3 Lymph # (Auto) 3.81 H (1.18-3.74) K/mm3 Clay # (Auto) 0.73 H (0.24-0.36) K/mm3 Eos # (Auto) 0.30 (0.04-0.36) K/mm3 Baso # (Auto) 0.02 (0.01-0.08) K/mm3 Sodium 137 (136-145) mEq/L Potassium 3.9 (3.5-5.1) mEq/L Chloride 100 (98-107) mEq/L Carbon Dioxide 23 (21-32) mEq/L Anion Gap 17.9 H (5-15) BUN 12 (7-18) mg/dL Creatinine 0.9 (0.55-1.02) mg/dL Est Cr Clr Drug Dosing 73.55 mL/min Estimated GFR (MDRD) > 60 (>60) mL/min BUN/Creatinine Ratio 13.3 L (14-18) Glucose 91 (74-106) mg/dL Calcium 9.1 (8.5-10.1) mg/dL Magnesium 1.8 (1.8-2.4) mg/dl Total Bilirubin 0.2 (0.2-1.0) mg/dL AST 28 (15-37) U/L ALT 26 (14-59) U/L Alkaline Phosphatase 45 L (46-116) U/L Total Protein 7.5 (6.4-8.2) g/dl Albumin 3.7 (3.4-5.0) g/dl Globulin 3.8 gm/dL Albumin/Globulin Ratio 1.0 (1-2) Meds: Medications Generic Name Dose Route Start Last Admin Trade Name Freq PRN Reason Stop Dose Admin Sodium Chloride 1,000 mls @ 1,000 mls/hr 10/13/19 18:15 10/13/19 18:19 Normal Saline IV 1,000 mls/hr .BOLUS GABI Administration Sodium Chloride 10 ml 10/13/19 18:05 10/13/19 18:19 Saline Flush FLUSH 10 ml ASDIRECTED PRN Administration Keep Vein Open - Re-Assessments/Exams Free Text/Narrative Re-Assessment/Exam: 10/13/19 18:56 I ordered an IV NS 1L bolus, ativan 1mg IV, labs and a CT of her head. 10/13/19 18:57 Her CBC looks good. Her anion gap was elevated at 17.9. Her electrolytes look good. 10/13/19 19:[address] shows nothing acute. She feels better. I will discharge her home. Departure - Departure Time of Disposition: 19:15 Disposition: Home, Self-Care 01 Condition: Good Clinical Impression: Epileptic seizure Qualifiers: Epilepsy type: unspecified Intractability: not intractable Status epilepticus: without status epilepticus Qualified Code(s): G40.909 - Epilepsy, unspecified, not intractable, without status epilepticus Laceration of left eyebrow Qualifiers: Encounter type: initial encounter Qualified Code(s): S01.112A - Laceration without foreign body of left eyelid and periocular area, initial encounter - Discharge Information *PRESCRIPTION DRUG MONITORING PROGRAM REVIEWED*: Not Applicable *COPY OF PRESCRIPTION DRUG MONITORING REPORT IN PATIENT KARTHIK: Not Applicable Referrals: PCP,None [Primary Care Provider] - Forms: ED Department Discharge Additional Instructions: Take your medication as prescribe. Eat and drink a healthy diet. Get plenty of sleep and avoid alcohol. Please return if you are worse. Clean the laceration with warm soapy water 2 times per day and apply antibiotic ointment after. Please return if you are worse. Sepsis Event Note - Evaluation Sepsis Screening Result: No Definite Risk - Focused Exam Vital Signs: Vital Signs Temp Pulse Resp BP Pulse Ox 10/13/19 18:04 97.0 F 100 16 106/67 96 Date Exam was Performed: 10/13/19 Time Exam was Performed: 19:11 - My Orders Last 24 Hours: My Active Orders 10/13/19 18:05 Cardiac Monitoring [RC] . DIRECTED Peripheral IV Care [RC] . DIRECTED Sodium Chloride 0.9% [Saline Flush] 10 ml FLUSH ASDIRECTED PRN Peripheral IV Insertion Adult [OM.PC] Stat 10/13/19 18:10 VALPROIC ACID [CHEM] Stat 10/13/19 18:15 Sodium Chloride 0.9% [Normal Saline] 1,000 ml IV .BOLUS - Assessment/Plan Last 24 Hours: My Active Orders 10/13/19 18:05 Cardiac Monitoring [RC] . DIRECTED Peripheral IV Care [RC] . DIRECTED Sodium Chloride 0.9% [Saline Flush] 10 ml FLUSH ASDIRECTED PRN Peripheral IV Insertion Adult [OM.PC] Stat 10/13/19 18:10 VALPROIC ACID [CHEM] Stat 10/13/19 18:15 Sodium Chloride 0.9% [Normal Saline] 1,000 ml IV .BOLUS
--- NOTE | 2019-10-13 19:00 | CT ---
Head CT Technique: Multiple axial sections were obtained through the brain. Intravenous contrast was not utilized. Comparison: No prior intracranial imaging is available. Findings: Ventricles along with basal cisterns and sulci over the convexities are within normal limits for the patient's age. No abnormal parenchymal densities are seen. No evidence of intracranial hemorrhage. No midline shift or mass effect is seen. Visualized paranasal sinuses and mastoid sinuses show nothing acute. No acute calvarial finding is appreciated. Impression: 1. No acute intracranial abnormality is seen. 2. No discrete calvarial abnormality is appreciated. Diagnostic code #2 Study was dictated in MDT
== END 2019-10-13 19:24 | disposition home or self-care (01) ==
LOC: JD.ED 18:03
DX: G40.909 Epilepsy, unspecified, not intractable, without status epilepticus (principal); S01.112A Laceration without foreign body of left eyelid and periocular area, initial encounter; Z88.8 Allergy status to other drugs, medicaments and biological substances; F17.210 Nicotine dependence, cigarettes, uncomplicated; W45.8XXA Other foreign body or object entering through skin, initial encounter
CPT/HCPCS: 36415; 70450; 80053; 80164; 83735; 85025; 99285; J7030

== ENCOUNTER 2020-12-20 09:32 | Inpatient (IN) | payer OTHER ==
[~2020-12-20 09:32] MED LIST: Enoxaparin 30 MG/0.3 ML Syringe SUBCUT SCH
[2020-12-20] MEDS ORDERED: LORazepam 2 MG/ML SDV IVPUSH ONE (09:38)
[2020-12-20] MEDS ORDERED: levETIRAcetam 500 MG in Sodium Chloride 0.9% 100 ML IV ONE ×2 (09:38→14:44)
[2020-12-20] MEDS ORDERED: Ondansetron 4 MG/2 ML SDV IVPUSH ONE (09:45)
[2020-12-20] MEDS ORDERED: Dextrose 5%-0.9% NaCl 1,000 ML IV SCH (09:45)
--- NOTE | 2020-12-20 09:48 | EDM.PDOC ---
ED HPI GENERAL MEDICAL PROBLEM - General Chief Complaint: Neurological Problem Stated Complaint: [facility] Time Seen by Provider: 12/20/20 09:37 Source of Information: Reports: Patient, EMS History Limitations: Reports: Altered Mental Status (Patient appears postictal. Mumbling type responses and usually asked almost everything I asked her. Appears confused.) - History of Present Illness INITIAL COMMENTS - FREE TEXT/NARRATIVE: 35-year-old female with known seizure disorder presents to the ED per [facility] after suffering for seizures at home this morning. Apparently 2 adult people around her home who witnessed the seizures. First one of her was around 0400 hrs. this morning. Second 1 at 0700 hrs. and 2 further seizures after this. By history they seem to be complex partial seizures with repetitive mumbling and mild tonic-clonic movements of both lower extremities. Patient does not seem to lose consciousness. She is definitely postictal when she arrives in the ED. Apparently she does take valproic acid daily. How much is not yet known. No apparent injuries falls due to the seizures. No loss of bowel or bladder control. She is complaining of a headache and associated nausea at this time, although she mumbles responses and appears very sleepy and tired. Onset: Today Onset Date: 12/20/20 (First seizure was at 0400 hrs. this morning. Second 1 at 0700 hrs. and 2 further seizures since that time.) Duration: Hour(s):, Recurring (For seizures so far this morning.) Location: Reports: Other (Complex partial seizures by history.) Severity: Moderate Improves with: Reports: None Worsens with: Reports: None Context: Denies: Activity, Exercise, Lifting, Sick Contact, Trauma, Other Associated Symptoms: Reports: Confusion, Malaise, Nausea/Vomiting, Seizure, Weakness (Nausea without vomiting generalized weakness. At present she does not want to sleep.). 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: Other (see below) (Paramedics did not administer any medications.) - Related Data Allergies Allergy/AdvReac Type Severity Reaction Status Date / Time carbamazepine [From Tegretol] Allergy Rash Verified 12/20/20 09:44 phenytoin [From Dilantin] Allergy Rash Verified 12/20/20 09:44 dilepital Allergy Rash Uncoded 12/20/20 09:44 Home Meds: Home Meds Divalproex Sodium [Depakote] 1,500 mg PO BEDTIME 05/25/19 [History] Past Medical History HEENT History: Reports: Impaired Vision Neurological History: Reports: Seizure Other Neuro History: epilepsy Psychiatric History: Reports: Anxiety, Depression, Panic Attack - Infectious Disease History Infectious Disease History: Reports: Chicken Pox, Hepatitis A Social & Family History - Family History Family Medical History: No Pertinent Family History - Caffeine Use Caffeine Use: Reports: Coffee - Living Situation & Occupation Living situation: Reports: , with Family 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 She will mumble and answers almost just all questions asked of her. She appears confused and disoriented to person place and time.) General Appearance: Lethargic, Other (Postictal appearance. Stable vital signs with temperature 36.6. Heart rate is 71 and sinus. Respiratory is 14 with O2 sats of 98% on room air. BP 121/96.) Eye Exam: Bilateral Eye: Normal Inspection (No blepharal pallor or scleral icterus.), PERRL (No gaze palsy) Throat/Mouth: No: Evidence of Tongue Biting Head Exam: Atraumatic, Normocephalic, Other Neck: Normal Inspection (No signs of head or facial trauma.), Supple, Non- Tender. No: Full Range of Motion, Lymphadenopathy (L), Lymphadenopathy (R) Respiratory/Chest: No Respiratory Distress, Lungs Clear, Normal Breath Sounds, No Accessory Muscle Use Cardiovascular: Normal Peripheral Pulses, Regular Rate, Rhythm, No Edema, No Gallop, No Murmur, No Rub GI/Abdominal: Normal Bowel Sounds, Soft, Non-Tender, No Organomegaly, Pelvis Stable, Other (Mildly obese. Nontender). No: Guarding, Rigid, Rebound Neuro Exam (Abbreviated): Normal Gait (Not able to at test), Slow to Respond (Amling type response and almost yes to all questions asked of her.), Abnormal Reflexes, Other (No sustained clonus.). No: Alert, Oriented, Normal Cognition DTR: 0: Bicep (R) (Patient is areflexic), Bicep (L), Patella (R), Patella (L), Achilles (R), Achilles (L) Back Exam: Normal Inspection, Other (No evidence of injury to the). No: CVA Tenderness (L), CVA Tenderness (R) Extremities: Normal Inspection, Normal Range of Motion, Non-Tender, No Pedal Edema ( thoracic or lumbar spine.) Psychiatric: Other (Not really able to assess that she is nonverbal at this time) Skin Exam: Warm, Dry, Intact, Normal Color, No Rash Course - Vital Signs Last Recorded V/S: Last Vital Signs Temp 36.6 C 12/20/20 09:41 Pulse 71 12/20/20 09:41 Resp 14 12/20/20 09:41 BP 121/96 H 12/20/20 09:41 Pulse Ox 98 12/20/20 09:41 - Orders/Labs/Meds Orders: Active Orders 24 hr Category Date Time Status Patient Status [ADT] Routine ADT 12/20/20 14:16 Active Blood Glucose Check, Bedside [RC] ONETIME Care 12/20/20 09:40 Active Height and Weight [RC] DAILY Care 12/20/20 14:15 Active Intake and Output Strict [RC] ASDIRECTED Care 12/20/20 14:15 Active Oxygen Therapy [RC] ASDIRECTED Care 12/20/20 14:16 Active Up With Assistance [RC] ASDIRECTED Care 12/20/20 14:17 Active Vital Signs [RC] Q1HR Care 12/20/20 14:16 Active Consult to Case Management/Head Tennis Professional [CONS] Cons 12/20/20 14:15 Active Routine OT Evaluation and Treatment [CONS] Routine Cons 12/20/20 14:20 Active PT Evaluation and Treatment [CONS] Routine Cons 12/20/20 14:20 Active Respiratory Care Assess and Treatment [CONS] Routine Cons 12/20/20 14:20 Active Nothing per Oral Now Diet [DIET] Diet 12/20/20 Dinner Active CBC WITH AUTO DIFF [HEME] AM Lab 12/21/20 05:11 Ordered CBC WITH AUTO DIFF [HEME] AM Lab 12/22/20 05:11 Ordered CBC WITH AUTO DIFF [HEME] AM Lab 12/23/20 05:11 Ordered CBC WITH AUTO DIFF [HEME] AM Lab 12/24/20 05:11 Ordered COMPREHENSIVE METABOLIC PN,CMP [CHEM] AM Lab 12/21/20 05:11 Ordered COMPREHENSIVE METABOLIC PN,CMP [CHEM] AM Lab 12/22/20 05:11 Ordered COMPREHENSIVE METABOLIC PN,CMP [CHEM] AM Lab 12/23/20 05:11 Ordered COMPREHENSIVE METABOLIC PN,CMP [CHEM] AM Lab 12/24/20 05:11 Ordered LEVETIRACETAM, S [REF] DAILY Lab 12/21/20 05:11 Ordered LEVETIRACETAM, S [REF] DAILY Lab 12/22/20 05:11 Ordered LEVETIRACETAM, S [REF] DAILY Lab 12/23/20 05:11 Ordered LEVETIRACETAM, S [REF] DAILY Lab 12/24/20 05:11 Ordered MAGNESIUM [CHEM] AM Lab 12/21/20 05:11 Ordered MAGNESIUM [CHEM] AM Lab 12/22/20 05:11 Ordered MAGNESIUM [CHEM] AM Lab 12/23/20 05:11 Ordered MAGNESIUM [CHEM] AM Lab 12/24/20 05:11 Ordered VALPROIC ACID [CHEM] AM Lab 12/21/20 05:11 Ordered Acetaminophen [TylenoL] Med 12/20/20 14:15 Active 650 mg PO Q4H PRN Acetaminophen/HYDROcodone [[place] 325-5 MG] Med 12/20/20 14:15 Active 1 tab PO Q4H PRN Dextrose 5%-0.9% NaCl [Dextrose 5%-Normal Saline] 1,000 Med 12/20/20 09:45 Active ml IV ASDIRECTED Dextrose 5%-0.9% NaCl [Dextrose 5%-Normal Saline] 1,000 Med 12/20/20 14:30 Active ml IV ASDIRECTED Docusate Sodium [Colace] Med 12/20/20 14:15 Active 100 mg PO DAILY PRN Enoxaparin [Lovenox] Med 12/20/20 09:00 Active 30 mg SUBCUT DAILY Famotidine [Pepcid] Med 12/21/20 09:00 Active 20 mg PO DAILY LORazepam [Ativan] Med 12/20/20 14:52 Active 2 mg IVPUSH Q4H PRN Ondansetron [Zofran ODT] Med 12/20/20 14:15 Active 4 mg PO Q6H PRN Ondansetron [Zofran] Med 12/20/20 14:15 Active 4 mg IV Q6H PRN levETIRAcetam [Keppra] 1,000 mg Med 12/21/20 03:00 Active Sodium Chloride 0.9% [Normal Saline] 100 ml IV Q12H Seizure Precautions [OM.PC] Routine Oth 12/20/20 14:15 Ordered Resuscitation Status Routine Resus Stat 12/20/20 14:15 Ordered Medication Orders Acetaminophen (Acetaminophen 325 Mg Tab) 650 mg PO Q4H PRN PRN Reason: Pain (Mild 1-3)/fever Hydrocodone Bitart/Acetaminophen (Acetaminophen/Hydrocodone 325-5 Mg Tab) 1 tab PO Q4H PRN PRN Reason: Pain (moderate 4-6) Docusate Sodium (Docusate Sodium 100 Mg Cap) 100 mg PO DAILY PRN PRN Reason: Constipation Enoxaparin Sodium (Enoxaparin 30 Mg/0.3 Ml Syringe) 30 mg SUBCUT DAILY [facility] Famotidine (Famotidine 20 Mg Tab) 20 mg PO DAILY [facility] Dextrose/Sodium Chloride (Dextrose 5%-Normal Saline) 1,000 mls @ 150 mls/hr IV ASDIRECTED [facility] Last Admin: 12/20/20 09:48 Dose: 150 mls/hr Documented by: STANISLAW Dextrose/Sodium Chloride (Dextrose 5%-Normal Saline) 1,000 mls @ 150 mls/hr IV ASDIRECTED [facility] Levetiracetam 1,000 mg/ Sodium (Chloride) 110 mls @ 400 mls/hr IV Q12H GABI Lorazepam (Lorazepam 2 Mg/Ml Sdv) 2 mg IVPUSH Q4H PRN PRN Reason: Seizures Ondansetron HCl (Ondansetron 4 Mg Tab.Dis) 4 mg PO Q6H PRN PRN Reason: nausea, able to take PO Ondansetron HCl (Ondansetron 4 Mg/2 Ml Sdv) 4 mg IV Q6H PRN PRN Reason: Nausea/Vomiting Labs: Laboratory Tests 12/20/20 12/20/20 12/20/20 Range/Units 09:49 09:58 09:58 WBC 7.39 (3.98-10.04) K/mm3 RBC 4.33 (3.98-5.22) M/mm3 Hgb 13.7 (11.2-15.7) gm/dl Hct 40.4 (34.1-44.9) % MCV 93.3 (79.4-94.8) fl MCH 31.6 (25.6-32.2) pg MCHC 33.9 (32.2-35.5) g/dl RDW Std Deviation 46.9 H (36.4-46.3) fL Plt Count 256 (182-369) K/mm3 MPV 9.8 (9.4-12.3) fl Neut % (Auto) 66.1 (34.0-71.1) % Lymph % (Auto) 22.2 (19.3-51.7) % Dawson % (Auto) 10.3 (4.7-12.5) % Eos % (Auto) 1.1 (0.7-5.8) Baso % (Auto) 0.3 (0.1-1.2) % Neut # (Auto) 4.89 (1.56-6.13) K/mm3 Lymph # (Auto) 1.64 (1.18-3.74) K/mm3 Dawson # (Auto) 0.76 H (0.24-0.36) K/mm3 Eos # (Auto) 0.08 (0.04-0.36) K/mm3 Baso # (Auto) 0.02 (0.01-0.08) K/mm3 Sodium 138 (136-145) mEq/L Potassium 4.7 (3.5-5.1) mEq/L Chloride 101 (98-107) mEq/L Carbon Dioxide 29 (21-32) mEq/L Anion Gap 12.7 (5-15) BUN 17 (7-18) mg/dL Creatinine 0.7 (0.55-1.02) mg/dL Est Cr Clr Drug Dosing TNP Estimated GFR (MDRD) > 60 (>60) mL/min BUN/Creatinine Ratio 24.3 H (14-18) Glucose 105 H (70-99) mg/dL POC Glucose 94 (70-99) mg/dL Lactic Acid (0.4-2.0) mmol/L Calcium 8.9 (8.5-10.1) mg/dL Magnesium 1.9 (1.8-2.4) mg/dL Total Bilirubin 0.1 L (0.2-1.0) mg/dL AST 20 (15-37) U/L ALT 32 (14-59) U/L Alkaline Phosphatase 49 (46-116) U/L Creatine Kinase 82 (26-192) U/L C-Reactive Protein 0.5 (<1.0) mg/dL Total Protein 7.6 (6.4-8.2) g/dl Albumin 3.5 (3.4-5.0) g/dl Globulin 4.1 gm/dL Albumin/Globulin Ratio 0.9 L (1-2) Urine Color (Yellow) Urine Appearance (Clear) Urine pH (5.0-8.0) Ur Specific [place] (1.005-1.030) Urine Protein (Negative) Urine Glucose (UA) (Negative) Urine Ketones (Negative) Urine Occult Blood (Negative) Urine Nitrite (Negative) Urine Bilirubin (Negative) Urine Urobilinogen (0.2-1.0) Ur Leukocyte Esterase (Negative) Urine RBC (0-5) /hpf Urine WBC (0-5) /hpf Ur Epithelial Cells (0-5) /hpf Urine Bacteria (FEW) /hpf Urine Mucus (FEW) /hpf Valproic Acid 141.7 H* (50.0-100.0) ug/mL SARS-CoV-2 RNA (MAKSIM) (NEGATIVE) 12/20/20 12/20/20 12/20/20 Range/Units 09:58 12:15 13:30 WBC (3.98-10.04) K/mm3 RBC (3.98-5.22) M/mm3 Hgb (11.2-15.7) gm/dl Hct (34.1-44.9) % MCV (79.4-94.8) fl MCH (25.6-32.2) pg MCHC (32.2-35.5) g/dl RDW Std Deviation (36.4-46.3) fL Plt Count (182-369) K/mm3 MPV (9.4-12.3) fl Neut % (Auto) (34.0-71.1) % Lymph % (Auto) (19.3-51.7) % Dawson % (Auto) (4.7-12.5) % Eos % (Auto) (0.7-5.8) Baso % (Auto) (0.1-1.2) % Neut # (Auto) (1.56-6.13) K/mm3 Lymph # (Auto) (1.18-3.74) K/mm3 [place] # (Auto) (0.24-0.36) K/mm3 Eos # (Auto) (0.04-0.36) K/mm3 Baso # (Auto) (0.01-0.08) K/mm3 Sodium (136-145) mEq/L Potassium (3.5-5.1) mEq/L Chloride (98-107) mEq/L Carbon Dioxide (21-32) mEq/L Anion Gap (5-15) BUN (7-18) mg/dL Creatinine (0.55-1.02) mg/dL Est Cr Clr Drug Dosing Estimated GFR (MDRD) (>60) mL/min BUN/Creatinine Ratio (14-18) Glucose (70-99) mg/dL POC Glucose (70-99) mg/dL Lactic Acid 1.7 (0.4-2.0) mmol/L Calcium (8.5-10.1) mg/dL Magnesium (1.8-2.4) mg/dL Total Bilirubin (0.2-1.0) mg/dL AST (15-37) U/L ALT (14-59) U/L Alkaline Phosphatase (46-116) U/L Creatine Kinase (26-192) U/L C-Reactive Protein (<1.0) mg/dL Total Protein (6.4-8.2) g/dl Albumin (3.4-5.0) g/dl Globulin gm/dL Albumin/Globulin Ratio (1-2) Urine Color Yellow (Yellow) Urine Appearance Clear (Clear) Urine pH 7.5 (5.0-8.0) Ur Specific [place] 1.020 (1.005-1.030) Urine Protein Negative (Negative) Urine Glucose (UA) Negative (Negative) Urine Ketones Negative (Negative) Urine Occult Blood Negative (Negative) Urine Nitrite Negative (Negative) Urine Bilirubin Negative (Negative) Urine Urobilinogen 0.2 (0.2-1.0) Ur Leukocyte Esterase Negative (Negative) Urine RBC 0-5 (0-5) /hpf Urine WBC 0-5 (0-5) /hpf Ur Epithelial Cells 0-5 (0-5) /hpf Urine Bacteria Moderate H (FEW) /hpf Urine Mucus Moderate H (FEW) /hpf Valproic Acid (50.0-100.0) ug/mL SARS-CoV-2 RNA (MAKSIM) Negative (NEGATIVE) Meds: Medications Generic Name Dose Route Start Last Admin Trade Name Freq PRN Reason Stop Dose Admin Acetaminophen 650 mg 12/20/20 14:15 Acetaminophen 325 Mg Tab PO Q4H PRN Pain (Mild 1-3)/fever Hydrocodone Bitart/Acetaminophen 1 tab 12/20/20 14:15 Acetaminophen/Hydrocodone 325-5 Mg Tab PO Q4H PRN Pain (moderate 4-6) Docusate Sodium 100 mg 12/20/20 14:15 Docusate Sodium 100 Mg Cap PO DAILY PRN Constipation Enoxaparin Sodium 30 mg 12/20/20 09:00 Enoxaparin 30 Mg/0.3 Ml Syringe SUBCUT DAILY GABI Famotidine 20 mg 12/21/20 09:00 Famotidine 20 Mg Tab PO DAILY GABI Dextrose/Sodium Chloride 1,000 mls @ 150 mls/hr 12/20/20 09:45 12/20/20 09:48 Dextrose 5%-Normal Saline IV 150 mls/hr ASDIRECTED GABI Administration Dextrose/Sodium Chloride 1,000 mls @ 150 mls/hr 12/20/20 14:30 Dextrose 5%-Normal Saline IV ASDIRECTED GABI Levetiracetam 1,000 mg/ Sodium 110 mls @ 400 mls/hr 12/21/20 03:00 Chloride IV Q12H GABI Lorazepam 2 mg 12/20/20 14:52 Lorazepam 2 Mg/Ml Sdv IVPUSH Q4H PRN Seizures Ondansetron HCl 4 mg 12/20/20 14:15 Ondansetron 4 Mg Tab.Dis PO Q6H PRN nausea, able to take PO Ondansetron HCl 4 mg 12/20/20 14:15 Ondansetron 4 Mg/2 Ml Sdv IV Q6H PRN Nausea/Vomiting Discontinued Medications Generic Name Dose Route Start Last Admin Trade Name Freq PRN Reason Stop Dose Admin Levetiracetam 500 mg/ Sodium 105 mls @ 400 mls/hr 12/20/20 09:38 12/20/20 09:48 Chloride IV 12/20/20 09:52 400 mls/hr ONETIME ONE Administration Levetiracetam 500 mg/ Sodium 105 mls @ 400 mls/hr 12/20/20 14:44 Chloride IV 12/20/20 14:58 ONETIME ONE Lorazepam 1 mg 12/20/20 09:38 12/20/20 09:40 Lorazepam 2 Mg/Ml Sdv IVPUSH 12/20/20 09:39 1 mg ONETIME ONE Administration Ondansetron HCl 4 mg 12/20/20 09:45 12/20/20 09:45 Ondansetron 4 Mg/2 Ml Sdv IVPUSH 12/20/20 09:46 4 mg ONETIME ONE Administration - Radiology Interpretation Free Text/Narrative:: 35-year-old female arrives in the ED per [facility] after apparently having four seizures this morning with the first one occurring at 0400 hrs. and second one at 0700 hrs. and two other seizures according to two adult who live in the same home as her. She has an underlying seizure disorders. The history suggest she does not lose consciousness with seizures but has tonic-clonic movements of lower extremities and chewing-like movements of her mouth and jaw suggesting complex partial seizure. She was in bed at all times of seizures and thus did not suffer any falls to the floor with injury. When she was seen in the ED she cannot answer all any questions. She mumbles and answers yes to almost all questions asked of her. She states she does have a headache with associated nausea but no vomiting. She appears postictal on exam. She is completely arefl exic. No sustained clonus Babinski's were both downgoing. Plan routine labs to be performed including valproic acid level which she is on for seizure disorder. Given Ativan 1 mg IV with Keppra 500 mg IV. IV will be D5 normal saline at 150 mils an hour. - Re-Assessments/Exams Free Text/Narrative Re-Assessment/Exam: 12/20/20 10:59 White count is normal at 7.39. Auto differential shows 66% neutrophils. Hemoglobin is 13.7 with hematocrit of 40.4. Platelet count is 256,000. Sodium 138 with a potassium of 4.7. Chloride 101 with a bicarb of twenty-nine. Anion gap is 12.7 with a BUN of seventeen and a creatinine of 0.7. GFR remains greater than sixty. Glucose is 105. Bedside glucose was ninety-four. Lactic acid is 1.7 only mildly elevated. Calcium is 8.9 with a magnesium of 1.9. Total bilirubin is 0.1 liver function is otherwise normal total CPK is also normal eighty-two. C-reactive protein is 0.5 total protein is 7.6 with an albumin fraction of 3.5 valproic acid level is markedly elevated at 141.7. Therapeutic is 50-100. She thus would be experiencing toxicity from this medication. 12/20/20 12:02 portable chest x-ray reveals heart size and mediastinum to be normal. Lungs are clear with no acute parenchymal change. Bony structures show nothing acute. 12/20/20 12:46 Urinalysis reveals moderate bacteria but leukocyte esterase was negative. 12/20/20 13:43: Discussed case with Dr. Butcher--on-call hospitalist and he has accepted care of this patient. CT of the head will be ordered per their request since we cannot get any real history on this patient. No family members have arrived to indicate exactly what they seem to identify seizure activity versus gradually worsening weakness and ataxia secondary to valproic acid toxicity. CT of the head reveals ventricles along with the basal cisterns and sulci over the convexities appear within normal limits for the patient's age. No abnormal parenchymal densities are seen. No evidence of intracranial hemorrhage is identified. No midline shift or mass-effect is identified. Bone window settings were reviewed. Visualized mastoid sinuses and paranasal sinuses show nothing acute. No acute calvarial abnormality is appreciated. Covid screen is negative. Departure - Departure Time of Disposition: 15:00 Disposition: Admitted As Inpatient 67 Condition: Fair Clinical Impression: Status epilepticus due to complex partial seizure Valproic acid toxicity Qualifiers: Encounter type: initial encounter Injury intent: intentional self-harm Qualified Code(s): T42.6X2A - Poisoning by other antiepileptic and sedative- hypnotic drugs, intentional self-harm, initial encounter - Discharge Information *PRESCRIPTION DRUG MONITORING PROGRAM REVIEWED*: Not Applicable *COPY OF PRESCRIPTION DRUG MONITORING REPORT IN PATIENT KARTHIK: Not Applicable Referrals: PCP,None [Primary Care Provider] - Forms: ED Department Discharge Additional Instructions: Patient to be admitted to med surgery due to valproic acid toxicity. It is unclear whether she actually had recurrent complex partial seizures this morning reportedly for over a period of 4 to 5 hours. She is prone to having breakthrough seizures on a monthly basis and I cannot be clear if it is related to menses. She has no primary care practitioner listed here in [place]. Family members did not attend her in the ED and therefore I could not get adequate information on who is providing neurology services and whether they believe she has true seizure disorder versus pseudoseizure disorder. At any rate she has valproic acid toxicity which may well be making her ill at this time as she would have ataxia and dysarthria with current levels of valproic acid at 141.5. Sepsis Event Note (ED) - Focused Exam Vital Signs: Vital Signs Temp Pulse Resp BP Pulse Ox 12/20/20 09:41 36.6 C 71 14 121/96 H 98 - My Orders Last 24 Hours: My Active Orders 12/20/20 09:40 Blood Glucose Check, Bedside [RC] ONETIME 12/20/20 09:45 Dextrose 5%-0.9% NaCl [Dextrose 5%-Normal Saline] 1,000 ml IV ASDIRECTED - Assessment/Plan Last 24 Hours: My Active Orders 12/20/20 09:40 Blood Glucose Check, Bedside [RC] ONETIME 12/20/20 09:45 Dextrose 5%-0.9% NaCl [Dextrose 5%-Normal Saline] 1,000 ml IV ASDIRECTED
--- NOTE | 2020-12-20 11:28 | CR ---
Chest: Portable view of the chest was obtained. Comparison: Prior chest x-ray of 09/07/19. Heart size and mediastinum are normal. Lungs are clear with no acute parenchymal change. Bony structures shows nothing acute. Impression: 1. Nothing acute is seen on portable chest x-ray. Diagnostic code #1
[2020-12-20] MEDS ORDERED: Acetaminophen 325 MG Tab PO PRN (14:15)
[2020-12-20] MEDS ORDERED: Ondansetron 4 MG Tab.DIS PO PRN (14:15)
[2020-12-20] MEDS ORDERED: Acetaminophen/HYDROcodone 325-5 MG Tab PO PRN (14:15)
[2020-12-20] MEDS ORDERED: Docusate Sodium 100 MG Cap PO PRN (14:15)
[2020-12-20] MEDS ORDERED: Ondansetron 4 MG/2 ML SDV IV PRN (14:15)
[2020-12-20] MEDS ORDERED: LORazepam 2 MG/ML SDV IVPUSH PRN (14:52)
--- NOTE | 2020-12-20 15:08 | PCM.HP.2 ---
H&P History of Present Illness - General Date of Service: 12/20/20 Admit Problem/Dx: Admission Diagnosis/Problem Admission Diagnosis/Problem Seizure Source of Information: Family, Provider History Limitations: Reports: Altered Mental Status (Patient is post ictal) - History of Present Illness Initial Comments - Free Text/Narative: Patient is a 35-year-old female who presented to the emergency department via [facility] after suffering several seizures at home this morning. The patient does have a known seizure disorder for which she takes Depakote. Seizures were witnessed by 2 adults that also live in the home with her. The first 1 was around 4 AM this morning and the second at 7 AM this morning. There were also 2 other seizures noted after this however it is unclear what time they occurred. Per the ER records they were described to be complex partial seizures with repetitive mumbling and mild tonic-clonic movements of both lower extremities. They stated that the patient did not seem to lose consciousness. She was not incontinent of bowel or bladder. Patient was postictal upon arrival to the emergency department. There were no apparent injuries noted from the seizures this morning. I have unable to get any real history out of the patient at the time of my assessment as she is still post ictal. She had also received Ativan 1 mg IV in the emergency department and 500 mg of Keppra IV. Per the patient's sister, the patient recently moved here from [place] and had had her initial visit with a Dr. Wynn, a neurologist at [facility] in [place] on November 17 to establish care. Patient at that time was prescribed Depakote 1000 mg to be taken twice daily. It is unclear whether or not the patient has been taking the medication as prescribed however labs in the ED revealed Depakote level of 141.7. Therapeutic is 50-100, therefore the patient is likely toxic. Upon exam the patient will open her eyes to verbal command however she is exceptionally drowsy and is not able to stay awake to answer any questions. She nods her head no to almost all of my questions. She is able to follow commands however she is very weak. Pupils are equal round and reactive at 6 mm. Babinski's were both downgoing. WBC is normal at 7.39, hemoglobin 13.7, hematocrit 40.4, platelet count 256,000. Sodium 138, potassium 4.7, chloride 101, bicarb 29, anion gap 12.7, BUN 17, creatinine 0.7, glucose 105, lactic acid 1.7, calcium 8.9, magnesium 1.9, total bilirubin 0.1, C-reactive protein 0.5. Urinalysis reveals moderate bacteria but leukocyte esterase was negative. Nothing acute was appreciated on portable view of the chest. - Related Data Allergies/Adverse Reactions: Allergies Allergy/AdvReac Type Severity Reaction Status Date / Time carbamazepine [From Tegretol] Allergy Rash Verified 12/20/20 09:44 phenytoin [From Dilantin] Allergy Rash Verified 12/20/20 09:44 dilepital Allergy Rash Uncoded 12/20/20 09:44 Home Medications: Home Meds Divalproex Sodium [Depakote] 1,500 mg PO BEDTIME 05/25/19 [History] Past Medical History HEENT History: Reports: Impaired Vision Neurological History: Reports: Seizure Other Neuro History: epilepsy Psychiatric History: Reports: Anxiety, Depression, Panic Attack - Infectious Disease History Infectious Disease History: Reports: Chicken Pox, Hepatitis A Social & Family History - Family History Family Medical History: No Pertinent Family History - Tobacco Use Tobacco Use Status *Q: Unknown Ever Used Tobacco - Caffeine Use Caffeine Use: Reports: Coffee - Living Situation & Occupation Living situation: Reports: , with Family 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) H&P Review of Systems - Review of Systems: Review Of Systems: Unable To Obtain (Due to the patient being postictal and lethargic from receiving Ativan) Reason Not Obtained: Patient is postictal and lethargic due to receiving IV Ativan Exam - Exam Exam: See Below - Vital Signs Vital Signs: Last Vital Signs Temp 97.9 F 12/20/20 09:41 Pulse 71 12/20/20 09:41 Resp 14 12/20/20 09:41 BP 121/96 H 12/20/20 09:41 Pulse Ox 98 12/20/20 09:41 - Exam Quality Assessment: Supplemental Oxygen, DVT Prophylaxis (Lovenox) General: Lethargic (Patient is postictal and has received 1 mg of IV Ativan) HEENT: Conjunctiva Clear, Mucosa Moist & Peters, Pupils Equal, Pupils Reactive, PERRLA Neck: Supple, Trachea Midline Lungs: Clear to Auscultation, Normal Respiratory Effort Cardiovascular: Regular Rate, Regular Rhythm, Normal S1, Normal S2 GI/Abdominal Exam: Normal Bowel Sounds, Soft, Non-Tender, No Distention (Female) Exam: Deferred Rectal (Female) Exam: Deferred Back Exam: Normal Inspection Extremities: Normal Inspection, Normal Range of Motion, Non-Tender, No Pedal Edema, Normal Capillary Refill Peripheral Pulses: 2+: Radial (L), Radial (R), Dorsalis Pedis (L), Dorsalis Pedis (R) Skin: Warm, Dry, Intact Neurological: Babinski (Downgoing), Other (Patient will follow commands however she is very very weak) Neuro Extensive - Mental Status: Other (Patient is lethargic and post ictal; unable to assess orientation) Psychiatric: Other (Patient is lethargic and postictal) - Patient Data Lab Results Last 24 hrs: Laboratory Results - last 24 hr 12/20/20 12/20/20 12/20/20 Range/Units 09:49 09:58 09:58 WBC 7.39 (3.98-10.04) K/mm3 RBC 4.33 (3.98-5.22) M/mm3 Hgb 13.7 (11.2-15.7) gm/dl Hct 40.4 (34.1-44.9) % MCV 93.3 (79.4-94.8) fl MCH 31.6 (25.6-32.2) pg MCHC 33.9 (32.2-35.5) g/dl RDW Std Deviation 46.9 H (36.4-46.3) fL Plt Count 256 (182-369) K/mm3 MPV 9.8 (9.4-12.3) fl Neut % (Auto) 66.1 (34.0-71.1) % Lymph % (Auto) 22.2 (19.3-51.7) % Bowie % (Auto) 10.3 (4.7-12.5) % Eos % (Auto) 1.1 (0.7-5.8) Baso % (Auto) 0.3 (0.1-1.2) % Neut # (Auto) 4.89 (1.56-6.13) K/mm3 Lymph # (Auto) 1.64 (1.18-3.74) K/mm3 Bowie # (Auto) 0.76 H (0.24-0.36) K/mm3 Eos # (Auto) 0.08 (0.04-0.36) K/mm3 Baso # (Auto) 0.02 (0.01-0.08) K/mm3 Sodium 138 (136-145) mEq/L Potassium 4.7 (3.5-5.1) mEq/L Chloride 101 (98-107) mEq/L Carbon Dioxide 29 (21-32) mEq/L Anion Gap 12.7 (5-15) BUN 17 (7-18) mg/dL Creatinine 0.7 (0.55-1.02) mg/dL Est Cr Clr Drug Dosing TNP Estimated GFR (MDRD) > 60 (>60) mL/min BUN/Creatinine Ratio 24.3 H (14-18) Glucose 105 H (70-99) mg/dL POC Glucose 94 (70-99) mg/dL Lactic Acid (0.4-2.0) mmol/L Calcium 8.9 (8.5-10.1) mg/dL Magnesium 1.9 (1.8-2.4) mg/dL Total Bilirubin 0.1 L (0.2-1.0) mg/dL AST 20 (15-37) U/L ALT 32 (14-59) U/L Alkaline Phosphatase 49 (46-116) U/L Creatine Kinase 82 (26-192) U/L C-Reactive Protein 0.5 (<1.0) mg/dL Total Protein 7.6 (6.4-8.2) g/dl Albumin 3.5 (3.4-5.0) g/dl Globulin 4.1 gm/dL Albumin/Globulin Ratio 0.9 L (1-2) Urine Color (Yellow) Urine Appearance (Clear) Urine pH (5.0-8.0) Ur Specific [place] (1.005-1.030) Urine Protein (Negative) Urine Glucose (UA) (Negative) Urine Ketones (Negative) Urine Occult Blood (Negative) Urine Nitrite (Negative) Urine Bilirubin (Negative) Urine Urobilinogen (0.2-1.0) Ur Leukocyte Esterase (Negative) Urine RBC (0-5) /hpf Urine WBC (0-5) /hpf Ur Epithelial Cells (0-5) /hpf Urine Bacteria (FEW) /hpf Urine Mucus (FEW) /hpf Valproic Acid 141.7 H* (50.0-100.0) ug/mL SARS-CoV-2 RNA (MAKSIM) (NEGATIVE) 12/20/20 12/20/20 12/20/20 Range/Units 09:58 12:15 13:30 WBC (3.98-10.04) K/mm3 RBC (3.98-5.22) M/mm3 Hgb (11.2-15.7) gm/dl Hct (34.1-44.9) % MCV (79.4-94.8) fl MCH (25.6-32.2) pg MCHC (32.2-35.5) g/dl RDW Std Deviation (36.4-46.3) fL Plt Count (182-369) K/mm3 MPV (9.4-12.3) fl Neut % (Auto) (34.0-71.1) % Lymph % (Auto) (19.3-51.7) % Bowie % (Auto) (4.7-12.5) % Eos % (Auto) (0.7-5.8) Baso % (Auto) (0.1-1.2) % Neut # (Auto) (1.56-6.13) K/mm3 Lymph # (Auto) (1.18-3.74) K/mm3 Bowie # (Auto) (0.24-0.36) K/mm3 Eos # (Auto) (0.04-0.36) K/mm3 Baso # (Auto) (0.01-0.08) K/mm3 Sodium (136-145) mEq/L Potassium (3.5-5.1) mEq/L Chloride (98-107) mEq/L Carbon Dioxide (21-32) mEq/L Anion Gap (5-15) BUN (7-18) mg/dL Creatinine (0.55-1.02) mg/dL Est Cr Clr Drug Dosing Estimated GFR (MDRD) (>60) mL/min BUN/Creatinine Ratio (14-18) Glucose (70-99) mg/dL POC Glucose (70-99) mg/dL Lactic Acid 1.7 (0.4-2.0) mmol/L Calcium (8.5-10.1) mg/dL Magnesium (1.8-2.4) mg/dL Total Bilirubin (0.2-1.0) mg/dL AST (15-37) U/L ALT (14-59) U/L Alkaline Phosphatase (46-116) U/L Creatine Kinase (26-192) U/L C-Reactive Protein (<1.0) mg/dL Total Protein (6.4-8.2) g/dl Albumin (3.4-5.0) g/dl Globulin gm/dL Albumin/Globulin Ratio (1-2) Urine Color Yellow (Yellow) Urine Appearance Clear (Clear) Urine pH 7.5 (5.0-8.0) Ur Specific [place] 1.020 (1.005-1.030) Urine Protein Negative (Negative) Urine Glucose (UA) Negative (Negative) Urine Ketones Negative (Negative) Urine Occult Blood Negative (Negative) Urine Nitrite Negative (Negative) Urine Bilirubin Negative (Negative) Urine Urobilinogen 0.2 (0.2-1.0) Ur Leukocyte Esterase Negative (Negative) Urine RBC 0-5 (0-5) /hpf Urine WBC 0-5 (0-5) /hpf Ur Epithelial Cells 0-5 (0-5) /hpf Urine Bacteria Moderate H (FEW) /hpf Urine Mucus Moderate H (FEW) /hpf Valproic Acid (50.0-100.0) ug/mL SARS-CoV-2 RNA (MAKSIM) Negative (NEGATIVE) Result Diagrams: 12/20/20 09:58 12/20/20 09:58 Sepsis Event Note - Evaluation Sepsis Screening Result: No Definite Risk - Focused Exam Vital Signs: Vital Signs Temp Pulse Resp BP Pulse Ox 12/20/20 09:41 97.9 F 71 14 121/96 H 98 - Problem List (1) Epileptic seizure SNOMED Code(s): 09200900 ICD Code: G40.909 - EPILEPSY, UNSP, NOT INTRACTABLE, WITHOUT STATUS EPILE PTICUS Status: Acute Priority: High Current Visit: Yes Qualifiers: Epilepsy type: unspecified Intractability: intractable Status epilepticus: without status epilepticus Qualified Code(s): G40.919 - Epilepsy, unspecified, intractable, without status epilepticus (2) Valproic acid toxicity SNOMED Code(s): 889335968 ICD Code: T42.6X1A - POISONING BY OTH ANTIEPLPTC AND SED-HYPNTC DRUGS, ACC, INIT Status: Acute Priority: High Current Visit: Yes Qualifiers: Encounter type: initial encounter Injury intent: intentional self-harm Qualified Code(s): T42.6X2A - Poisoning by other antiepileptic and sedative- hypnotic drugs, intentional self-harm, initial encounter Problem List Initiated/Reviewed/Updated: Yes Orders Last 24hrs: Active Orders 24 hr Category Date Time Status Patient Status [ADT] Routine ADT 12/20/20 14:16 Active Blood Glucose Check, Bedside [RC] ONETIME Care 12/20/20 09:40 Active Height and Weight [RC] DAILY Care 12/20/20 14:15 Active Intake and Output Strict [RC] ASDIRECTED Care 12/20/20 14:15 Active Oxygen Therapy [RC] ASDIRECTED Care 12/20/20 14:16 Active Up With Assistance [RC] ASDIRECTED Care 12/20/20 14:17 Active Vital Signs [RC] Q1HR Care 12/20/20 14:16 Active Consult to Case Management/Blood Bank Laboratory Professional [CONS] Cons 12/20/20 14:15 Active Routine OT Evaluation and Treatment [CONS] Routine Cons 12/20/20 14:20 Active PT Evaluation and Treatment [CONS] Routine Cons 12/20/20 14:20 Active Respiratory Care Assess and Treatment [CONS] Routine Cons 12/20/20 14:20 Active Nothing per Oral Now Diet [DIET] Diet 12/20/20 Dinner Active Head wo Cont [CT] Stat Exams 12/20/20 14:15 Taken CBC WITH AUTO DIFF [HEME] AM Lab 12/21/20 05:11 Ordered CBC WITH AUTO DIFF [HEME] AM Lab 12/22/20 05:11 Ordered CBC WITH AUTO DIFF [HEME] AM Lab 12/23/20 05:11 Ordered CBC WITH AUTO DIFF [HEME] AM Lab 12/24/20 05:11 Ordered COMPREHENSIVE METABOLIC PN,CMP [CHEM] AM Lab 12/21/20 05:11 Ordered COMPREHENSIVE METABOLIC PN,CMP [CHEM] AM Lab 12/22/20 05:11 Ordered COMPREHENSIVE METABOLIC PN,CMP [CHEM] AM Lab 12/23/20 05:11 Ordered COMPREHENSIVE METABOLIC PN,CMP [CHEM] AM Lab 12/24/20 05:11 Ordered LEVETIRACETAM, S [REF] DAILY Lab 12/21/20 05:11 Ordered LEVETIRACETAM, S [REF] DAILY Lab 12/22/20 05:11 Ordered LEVETIRACETAM, S [REF] DAILY Lab 12/23/20 05:11 Ordered LEVETIRACETAM, S [REF] DAILY Lab 12/24/20 05:11 Ordered MAGNESIUM [CHEM] AM Lab 12/21/20 05:11 Ordered MAGNESIUM [CHEM] AM Lab 12/22/20 05:11 Ordered MAGNESIUM [CHEM] AM Lab 12/23/20 05:11 Ordered MAGNESIUM [CHEM] AM Lab 12/24/20 05:11 Ordered VALPROIC ACID [CHEM] AM Lab 12/21/20 05:11 Ordered Acetaminophen [TylenoL] Med 12/20/20 14:15 Active 650 mg PO Q4H PRN Acetaminophen/HYDROcodone [Rickman 325-5 MG] Med 12/20/20 14:15 Active 1 tab PO Q4H PRN Dextrose 5%-0.9% NaCl [Dextrose 5%-Normal Saline] 1,000 Med 12/20/20 09:45 Active ml IV ASDIRECTED Dextrose 5%-0.9% NaCl [Dextrose 5%-Normal Saline] 1,000 Med 12/20/20 14:30 Active ml IV ASDIRECTED Docusate Sodium [Colace] Med 12/20/20 14:15 Active 100 mg PO DAILY PRN Enoxaparin [Lovenox] Med 12/20/20 09:00 Active 30 mg SUBCUT DAILY Famotidine [Pepcid] Med 12/21/20 09:00 Active 20 mg PO DAILY LORazepam [Ativan] Med 12/20/20 14:52 Active 2 mg IVPUSH Q4H PRN Ondansetron [Zofran ODT] Med 12/20/20 14:15 Active 4 mg PO Q6H PRN Ondansetron [Zofran] Med 12/20/20 14:15 Active 4 mg IV Q6H PRN levETIRAcetam [Keppra] 1,000 mg Med 12/21/20 03:00 Active Sodium Chloride 0.9% [Normal Saline] 100 ml IV Q12H levETIRAcetam [Keppra] 500 mg Med 12/20/20 14:44 Active Sodium Chloride 0.9% [Normal Saline] 100 ml IV ONETIME Seizure Precautions [OM.PC] Routine Oth 12/20/20 14:15 Ordered Resuscitation Status Routine Resus Stat 12/20/20 14:15 Ordered Medication Orders Acetaminophen (Acetaminophen 325 Mg Tab) 650 mg PO Q4H PRN PRN Reason: Pain (Mild 1-3)/fever Hydrocodone Bitart/Acetaminophen (Acetaminophen/Hydrocodone 325-5 Mg Tab) 1 tab PO Q4H PRN PRN Reason: Pain (moderate 4-6) Docusate Sodium (Docusate Sodium 100 Mg Cap) 100 mg PO DAILY PRN PRN Reason: Constipation Enoxaparin Sodium (Enoxaparin 30 Mg/0.3 Ml Syringe) 30 mg SUBCUT DAILY GABI Famotidine (Famotidine 20 Mg Tab) 20 mg PO DAILY GABI Dextrose/Sodium Chloride (Dextrose 5%-Normal Saline) 1,000 mls @ 150 mls/hr IV ASDIRECTED [facility] Last Admin: 12/20/20 09:48 Dose: 150 mls/hr Documented by: STANISLAW Dextrose/Sodium Chloride (Dextrose 5%-Normal Saline) 1,000 mls @ 150 mls/hr IV ASDIRECTED GABI Levetiracetam 500 mg/ Sodium (Chloride) 105 mls @ 400 mls/hr IV ONETIME ONE Stop: 12/20/20 14:58 Levetiracetam 1,000 mg/ Sodium (Chloride) 110 mls @ 400 mls/hr IV Q12H GABI Lorazepam (Lorazepam 2 Mg/Ml Sdv) 2 mg IVPUSH Q4H PRN PRN Reason: Seizures Ondansetron HCl (Ondansetron 4 Mg Tab.Dis) 4 mg PO Q6H PRN PRN Reason: nausea, able to take PO Ondansetron HCl (Ondansetron 4 Mg/2 Ml Sdv) 4 mg IV Q6H PRN PRN Reason: Nausea/Vomiting Assessment/Plan Comment:: Patient is a 35-year-old female who presented to the ER with approximately 4 s eizures since 4 AM this morning. She does have a known seizure disorder for which she takes Depakote. Levels in the ER were found to be toxic. I did contact the patient's neurologist at [facility] in [place], Dr. Wynn. He states that she was to be taking Depakote 1000 mg twice daily. His initial visit with her was on November 172020 to establish care. He also relays to me that she did have an MRI of the head on November 232020 which was essentially unremarkable. He recommends that we discontinue the Depakote. And start her on Keppra 1000 mg loading dose. She was given 500 mg in the ER and I have ordered for her to receive another 500 mg IV. He also recommends a daily Keppra trough and for her to receive Keppra 1000 mg IV twice daily until we get her levels at therapeutic. He states that if we are able to obtain an EEG on the patient that would be helpful however it is not warranted. We will continue giving her IV fluids at a maintenance rate of 150 mL's per hour. She will be placed in the ICU on seizure precautions. She will be n.p.o. until she was more awake and alert to tolerate fluids and food. Vital signs will be every hour. I have ordered Ativan 2 mg IV every 4 hours as needed for seizure. We will repeat CBC and chemistries in the a.m. She will receive Lovenox for DVT prophylaxis. I have also ordered a CT of the head without contrast. Case management and high school social science teacher for discharge planning. PT/OT to eval and treat for discharge planning once the patient is more alert. Patient does have a primary care provider at [facility] here in [place] h owever her sister was unable to tell me who that was. - Mortality Measure Prognosis:: Good
--- NOTE | 2020-12-20 15:12 | CT ---
Head CT Technique: Multiple axial sections through the brain were obtained. Intravenous contrast was not utilized. Reconstructed coronal and sagittal images were obtained. Comparison: Prior head CT study of 10/13/19. Findings: Ventricles along with basal cisterns and sulci over the convexities appear within normal limits for the patient's age. No abnormal parenchymal densities are seen. No evidence of intracranial hemorrhage is identified. No midline shift or mass-effect is seen. Bone window settings were reviewed. Visualized mastoid sinuses and paranasal sinuses show nothing acute. No acute calvarial abnormality is appreciated. Impression: 1. Nothing acute is seen on noncontrast head CT study. 2. No appreciable change is seen from prior head CT study. Diagnostic code #1
[2020-12-20] MEDS: levETIRAcetam 1,000 MG in Sodium Chloride 0.9% 100 ML IV SCH (18:55)
[2020-12-20] MEDS: Enoxaparin 30 MG/0.3 ML Syringe SUBCUT SCH (18:57)
[2020-12-21] MEDS: Dextrose 5%-0.9% NaCl 1,000 ML IV SCH ×3 (00:47→14:56)
[2020-12-21] MEDS ORDERED: levETIRAcetam 1,000 MG in Sodium Chloride 0.9% 100 ML IV SCH (03:00)
[2020-12-21] MEDS: levETIRAcetam 1,000 MG in Sodium Chloride 0.9% 100 ML IV SCH ×2 (07:54→20:36)
[2020-12-21] MEDS ORDERED: Famotidine 20 MG Tab PO SCH (09:00)
[2020-12-21] MEDS: Enoxaparin 30 MG/0.3 ML Syringe SUBCUT SCH (10:02)
[2020-12-21] MEDS ORDERED: Potassium Chloride 20 MEQ Tab.ER PO ONE ×2 (10:34→14:30)
--- NOTE | 2020-12-21 13:43 | PCM.PN ---
- General Info Date of Service: 12/21/20 Admission Dx/Problem (Free Text): Admission Diagnosis/Problem Admission Diagnosis/Problem Seizure Subjective Update: No seizure activity overnight very sleepy this morning denied headache, chest pain, sob on room air Functional Status: Reports: Pain Controlled - Review of Systems General: Reports: No Symptoms, Weakness HEENT: Reports: No Symptoms Pulmonary: Reports: No Symptoms Cardiovascular: Reports: No Symptoms Gastrointestinal: Reports: No Symptoms Musculoskeletal: Reports: No Symptoms Skin: Reports: No Symptoms Psychiatric: Reports: No Symptoms - Patient Data Vitals - Most Recent: Last Vital Signs Temp 96.9 F 12/21/20 12:00 Pulse 59 L 12/21/20 12:00 Resp 16 12/21/20 12:00 BP 110/74 12/21/20 12:00 Pulse Ox 97 12/21/20 12:00 Weight - Most Recent: 190 lb 2 oz I&O - Last 24 Hours: Intake & Output 12/20/20 12/21/20 12/21/20 22:59 06:59 14:59 Intake Total 1547 Output Total 300 500 Balance -300 1047 Lab Results Last 24 Hours: Laboratory Results - last 24 hr 12/20/20 12/21/20 12/21/20 Range/Units 13:30 05:30 05:30 WBC 6.23 (3.98-10.04) K/mm3 RBC 3.55 L (3.98-5.22) M/mm3 Hgb 10.9 L D (11.2-15.7) gm/dl Hct 33.9 L (34.1-44.9) % MCV 95.5 H (79.4-94.8) fl MCH 30.7 (25.6-32.2) pg MCHC 32.2 (32.2-35.5) g/dl RDW Std Deviation 47.1 H (36.4-46.3) fL Plt Count 198 (182-369) K/mm3 MPV 10.0 (9.4-12.3) fl Neut % (Auto) 41.0 (34.0-71.1) % Lymph % (Auto) 42.1 (19.3-51.7) % [place] % (Auto) 14.8 H (4.7-12.5) % Eos % (Auto) 1.6 (0.7-5.8) Baso % (Auto) 0.3 (0.1-1.2) % Neut # (Auto) 2.56 (1.56-6.13) K/mm3 Lymph # (Auto) 2.62 (1.18-3.74) K/mm3 [place] # (Auto) 0.92 H (0.24-0.36) K/mm3 Eos # (Auto) 0.10 (0.04-0.36) K/mm3 Baso # (Auto) 0.02 (0.01-0.08) K/mm3 Sodium 146 H (136-145) mEq/L Potassium 3.9 (3.5-5.1) mEq/L Chloride 110 H (98-107) mEq/L Carbon Dioxide 26 (21-32) mEq/L Anion Gap 13.9 (5-15) BUN 10 (7-18) mg/dL Creatinine 0.6 (0.55-1.02) mg/dL Est Cr Clr Drug Dosing 114.08 mL/min Estimated GFR (MDRD) > 60 (>60) mL/min BUN/Creatinine Ratio 16.7 (14-18) Glucose 102 H (70-99) mg/dL Calcium 7.5 L (8.5-10.1) mg/dL Magnesium 1.9 (1.8-2.4) mg/dL Total Bilirubin 0.1 L (0.2-1.0) mg/dL AST 21 (15-37) U/L ALT 25 (14-59) U/L Alkaline Phosphatase 34 L (46-116) U/L Total Protein 5.7 L (6.4-8.2) g/dl Albumin 2.6 L (3.4-5.0) g/dl Globulin 3.1 gm/dL Albumin/Globulin Ratio 0.8 L (1-2) Valproic Acid 22.5 L (50.0-100.0) ug/mL SARS-CoV-2 RNA ([facility]) Negative (NEGATIVE) Med Orders - Current: Current Medications Acetaminophen (Acetaminophen 325 Mg Tab) 650 mg PO Q4H PRN PRN Reason: Pain (Mild 1-3)/fever Hydrocodone Bitart/Acetaminophen (Acetaminophen/Hydrocodone 325-5 Mg Tab) 1 tab PO Q4H PRN PRN Reason: Pain (moderate 4-6) Docusate Sodium (Docusate Sodium 100 Mg Cap) 100 mg PO DAILY PRN PRN Reason: Constipation Enoxaparin Sodium (Enoxaparin 30 Mg/0.3 Ml Syringe) 30 mg SUBCUT DAILY [facility] Last Admin: 12/21/20 10:02 Dose: 30 mg Documented by: Famotidine (Famotidine 20 Mg Tab) 20 mg PO DAILY [facility] Last Admin: 12/21/20 10:02 Dose: 20 mg Documented by: Dextrose/Sodium Chloride (Dextrose 5%-Normal Saline) 1,000 mls @ 150 mls/hr IV ASDIRECTED [facility] Last Admin: 12/21/20 07:59 Dose: 150 mls/hr Documented by: Levetiracetam 1,000 mg/ Sodium (Chloride) 110 mls @ 400 mls/hr IV Q12H [facility] Lorazepam (Lorazepam 2 Mg/Ml Sdv) 2 mg IVPUSH Q4H PRN PRN Reason: Seizures Ondansetron HCl (Ondansetron 4 Mg Tab.Dis) 4 mg PO Q6H PRN PRN Reason: nausea, able to take PO Ondansetron HCl (Ondansetron 4 Mg/2 Ml Sdv) 4 mg IV Q6H PRN PRN Reason: Nausea/Vomiting Discontinued Medications Enoxaparin Sodium (Enoxaparin 30 Mg/0.3 Ml Syringe) 30 mg SUBCUT DAILY [facility] Last Admin: 12/20/20 19:11 Dose: Not Given Documented by: Dextrose/Sodium Chloride (Dextrose 5%-Normal Saline) 1,000 mls @ 150 mls/hr IV ASDIRECTED [facility] Last Admin: 12/20/20 09:48 Dose: 150 mls/hr Documented by: Levetiracetam 500 mg/ Sodium (Chloride) 105 mls @ 400 mls/hr IV ONETIME ONE Stop: 12/20/20 09:52 Last Admin: 12/20/20 09:48 Dose: 400 mls/hr Documented by: Levetiracetam 500 mg/ Sodium (Chloride) 105 mls @ 400 mls/hr IV ONETIME ONE Stop: 12/20/20 14:58 Last Admin: 12/20/20 17:44 Dose: Not Given Documented by: Levetiracetam 1,000 mg/ Sodium (Chloride) 110 mls @ 400 mls/hr IV Q12H [facility] Levetiracetam 1,000 mg/ Sodium (Chloride) 110 mls @ 400 mls/hr IV Q12H [facility] Last Admin: 12/21/20 07:54 Dose: 400 mls/hr Documented by: Lorazepam (Lorazepam 2 Mg/Ml Sdv) 1 mg IVPUSH ONETIME ONE Stop: 12/20/20 09:39 Last Admin: 12/20/20 09:40 Dose: 1 mg Documented by: Ondansetron HCl (Ondansetron 4 Mg/2 Ml Sdv) 4 mg IVPUSH ONETIME ONE Stop: 12/20/20 09:46 Last Admin: 12/20/20 09:45 Dose: 4 mg Documented by: Potassium Chloride (Potassium Chloride 20 Meq Tab.Er) 40 meq PO ONETIME ONE Stop: 12/21/20 10:35 - Exam General: Alert, Oriented HEENT: EOMI, Mucous Membr. Moist/[place] Neck: Supple Lungs: Clear to Auscultation, Normal Respiratory Effort Cardiovascular: Regular Rate, Regular Rhythm GI/Abdominal Exam: Soft, Non-Tender, No Distention Skin: Warm, Dry, Intact Neurological: No New Focal Deficit Psy/Mental Status: Alert - Patient Data Lab Results Last 24 hrs: Laboratory Results - last 24 hr 12/20/20 12/21/20 12/21/20 Range/Units 13:30 05:30 05:30 WBC 6.23 (3.98-10.04) K/mm3 RBC 3.55 L (3.98-5.22) M/mm3 Hgb 10.9 L D (11.2-15.7) gm/dl Hct 33.9 L (34.1-44.9) % MCV 95.5 H (79.4-94.8) fl MCH 30.7 (25.6-32.2) pg MCHC 32.2 (32.2-35.5) g/dl RDW Std Deviation 47.1 H (36.4-46.3) fL Plt Count 198 (182-369) K/mm3 MPV 10.0 (9.4-12.3) fl Neut % (Auto) 41.0 (34.0-71.1) % Lymph % (Auto) 42.1 (19.3-51.7) % [place] % (Auto) 14.8 H (4.7-12.5) % Eos % (Auto) 1.6 (0.7-5.8) Baso % (Auto) 0.3 (0.1-1.2) % Neut # (Auto) 2.56 (1.56-6.13) K/mm3 Lymph # (Auto) 2.62 (1.18-3.74) K/mm3 [place] # (Auto) 0.92 H (0.24-0.36) K/mm3 Eos # (Auto) 0.10 (0.04-0.36) K/mm3 Baso # (Auto) 0.02 (0.01-0.08) K/mm3 Sodium 146 H (136-145) mEq/L Potassium 3.9 (3.5-5.1) mEq/L Chloride 110 H (98-107) mEq/L Carbon Dioxide 26 (21-32) mEq/L Anion Gap 13.9 (5-15) BUN 10 (7-18) mg/dL Creatinine 0.6 (0.55-1.02) mg/dL Est Cr Clr Drug Dosing 114.08 mL/min Estimated GFR (MDRD) > 60 (>60) mL/min BUN/Creatinine Ratio 16.7 (14-18) Glucose 102 H (70-99) mg/dL Calcium 7.5 L (8.5-10.1) mg/dL Magnesium 1.9 (1.8-2.4) mg/dL Total Bilirubin 0.1 L (0.2-1.0) mg/dL AST 21 (15-37) U/L ALT 25 (14-59) U/L Alkaline Phosphatase 34 L (46-116) U/L Total Protein 5.7 L (6.4-8.2) g/dl Albumin 2.6 L (3.4-5.0) g/dl Globulin 3.1 gm/dL Albumin/Globulin Ratio 0.8 L (1-2) Valproic Acid 22.5 L (50.0-100.0) ug/mL SARS-CoV-2 RNA ([facility]) Negative (NEGATIVE) Result Diagrams: 12/21/20 05:30 12/21/20 05:30 Sepsis Event Note - Evaluation Sepsis Screening Result: No Definite Risk - Focused Exam Vital Signs: Vital Signs Temp Pulse Resp BP Pulse Ox 12/21/20 12:00 96.9 F 59 L 16 110/74 97 12/21/20 08:00 97.2 F 60 18 99/75 96 12/21/20 04:00 67 19 107/64 94 L - Problem List Review Problem List Initiated/Reviewed/Updated: Yes - My Orders Last 24 Hours: My Active Orders 12/21/20 Breakfast Regular Diet [DIET] - Plan Plan:: Patient is a 35-year-old female who presented to the ER with approximately 4 seizures since 4 AM this morning. She does have a known seizure disorder for which she takes Depakote. Levels in the ER were found to be toxic. I did contact the patient's neurologist at [facility] in [place], Dr. Wynn. He states that she was to be taking Depakote 1000 mg twice daily. His initial visit with her was on November 172020 to establish care. He also relays to me that she did have an MRI of the head on November 232020 which was essentially unremarkable. He recommends that we discontinue the Depakote. And start her on Keppra 1000 mg loading dose. She was given 500 mg in the ER and I have ordered for her to receive another 500 mg IV. He also recommends a daily Keppra trough and for her to receive Keppra 1000 mg IV twice daily until we get her levels at therapeutic. He states that if we are able to obtain an EEG on the patient that would be helpful however it is not warranted. We will continue giving her IV f luids at a maintenance rate of 150 mL's per hour. She will be placed in the ICU on seizure precautions. She will be n.p.o. until she was more awake and alert to tolerate fluids and food. Vital signs will be every hour. I have ordered Ativan 2 mg IV every 4 hours as needed for seizure. We will repeat CBC and chemistries in the a.m. She will receive Lovenox for DVT prophylaxis. I have also ordered a CT of the head without contrast. Case management and director social service for discharge planning. PT/OT to eval and treat for discharge planning once the patient is more alert. Assessment: This is a 35F with PMhx of seizure disorder previously on depakote presenting with recurrent seizure and supratherapeutic depakote levels 1. Seizure disorder 2. mild hypokalemia 3. Mild hypernatremia 4. Elevated serum depakote levels-resolved Plan -continue keppra -check keppra levels transition to PO when levels therapeutic per Neurology -Outpatient Neurology f/u with anticipated EEG; will defer to neurology team to order EEG -per report recent MRI Brain with no acute findings -continue seizure precautions -prn ativan -CT head with no acute findings Code-full DVT-lovenox Dispo-anticipated discharge once keprra levels therapeutic
[2020-12-21] MEDS ORDERED: Nicotine 21 MG/24 Hr Patch TRDERM SCH (20:00)
[2020-12-21] MEDS: LORazepam 0.5 MG Tab PO PRN ×2 (20:01→22:37)
--- NOTE | 2020-12-22 07:36 | PCM.DCSUM1 ---
Discharge Summary - Hospital Course HPI Initial Comments: ALIZA Initial Comments - Free Text/Narative: Patient is a 35-year-old female who presented to the emergency department via [facility] after suffering several seizures at home this morning. The patient does have a known seizure disorder for which she takes Depakote. Seizures were witnessed by 2 adults that also live in the home with her. The first 1 was around 4 AM this morning and the second at 7 AM this timothy munguia. There were also 2 other seizures noted after this however it is unclear what time they occurred. Per the ER records they were described to be complex partial seizures with repetitive mumbling and mild tonic-clonic movements of both lower extremities. They stated that the patient did not seem to lose consciousness. She was not incontinent of bowel or bladder. Patient was postictal upon arrival to the emergency department. There were no apparent injuries noted from the seizures this morning. I have unable to get any real history out of the patient at the time of my assessment as she is still post ictal. She had also received Ativan 1 mg IV in the emergency department and 500 mg of Keppra IV. Per the patient's sister, the patient recently moved here from [place] and had had her initial visit with a Dr. Wynn, a neurologist at [facility] in [place] on November 17 to establish care. Patient at that time was prescribed Depakote 1000 mg to be taken twice daily. It is unclear whether or not the patient has been taking the medication as prescribed however labs in the ED revealed Depakote level of 141.7. Therapeutic is 50-100, therefore the patient is likely toxic. Upon exam the patient will open her eyes to verbal command however she is exceptionally drowsy and is not able to stay awake to answer any questions. She nods her head no to almost all of my questions. She is able to follow commands however she is very weak. Pupils are equal round and reactive at 6 mm. Babinski's were both downgoing. WBC is normal at 7.39, hemoglobin 13.7, hematocrit 40.4, platelet count 256,000. Sodium 138, potassium 4.7, chloride 101, bicarb 29, anion gap 12.7, BUN 17, creatinine 0.7, glucose 105, lactic acid 1.7, calcium 8.9, magnesium 1.9, total bilirubin 0.1, C-reactive protein 0.5. Urinalysis reveals moderate bacteria but leukocyte esterase was negative. Nothing acute was appreciated on portable view of the chest. HOSPITAL SUMMARY Assessment: This is a 35F with PMhx of seizure disorder previously on depakote presenting with recurrent seizure and supratherapeutic depakote levels 1. Seizure disorder 2. mild hypokalemia 3. Mild hypernatremia 4. Elevated serum depakote levels-resolved Plan -continue keppra IV -checked keppra levels transition to PO when levels therapeutic per Neurology -Outpatient Neurology f/u with anticipated EEG; will defer to neurology team to order EEG -per report recent MRI Brain with no acute findings -continued seizure precautions -prn ativan -CT head with no acute findings on 12/22 Patient requested discharge from hospital. I discussed case with [facility]. Neurology recommendations are for 1000 mg Keppra twice a day. The patient has been instructed on no driving and close follow up with PCP and Neurology team. She has been instructed on discontinuation of Depakote. Exam Gen: No acute distress HEENT: NCAT EOMI MMM CV: RRR normal s1 s2 Lungs: CTAB Abd: Soft, nt, nd Neuro: AOX3; CN intact; nonfocal screening exam Psych: appropriate affect Diagnosis: Stroke: No - Discharge Data Discharge Date: 12/22/20 Discharge Disposition: Home, Self-Care 01 Condition: Good - Referral to Home Health Primary Care Physician: PCP None - Patient Summary/Data Consults: Consultations 12/20/20 14:15 Consult to Case Management/[employer] [CONS] Routine 12/20/20 14:20 OT Evaluation and Treatment [CONS] Routine PT Evaluation and Treatment [CONS] Routine Respiratory Care Assess and Treatment [CONS] Routine - Patient Instructions Diet: Usual Diet as Tolerated Driving: Do Not Drive Other/Special Instructions: Please do not drive until you are given clearance by your Neurology team. - Discharge Plan *PRESCRIPTION DRUG MONITORING PROGRAM REVIEWED*: Not Applicable *COPY OF PRESCRIPTION DRUG MONITORING REPORT IN PATIENT KARTHIK: Not Applicable Prescriptions/Med Rec: levETIRAcetam [Keppra] 1,000 mg PO BID #60 tablet Home Medications: Home Meds Sertraline [Zoloft] 25 mg PO DAILY 12/21/20 [History] levETIRAcetam [Keppra] 1,000 mg PO BID #60 tablet 12/22/20 [Rx] Oxygen Therapy Mode: Room Air Patient Handouts: Epilepsy, [id number], Steps to Quit Smoking Forms: ED Department Discharge Referrals: Essie Wynn MD [Ordering Only Provider] - 01/20/21 11:30 am (appt. is in [facility] time. New Address is [address] [address]) Matilde Castillo NP [Ordering Only Provider] - 12/26/20 9:00 am (Please check in at 9:00 for appt.) - Discharge Summary/Plan Comment DC Time >30 min.: Yes (35 minutes) - Review of Systems General: Reports: No Symptoms HEENT: Reports: No Symptoms Pulmonary: Reports: No Symptoms Cardiovascular: Reports: No Symptoms Gastrointestinal: Reports: No Symptoms Genitourinary: Reports: No Symptoms Musculoskeletal: Reports: No Symptoms Skin: Reports: No Symptoms Neurological: Reports: No Symptoms Psychiatric: Reports: No Symptoms - Patient Data Vitals - Most Recent: Last Vital Signs Temp 97.6 F 12/22/20 04:00 Pulse 88 12/22/20 04:00 Resp 14 12/22/20 04:00 BP 124/69 12/22/20 04:00 Pulse Ox 98 12/22/20 04:00 Weight - Most Recent: 190 lb 2 oz I&O - Last 24 hours: Intake & Output 12/21/20 12/22/20 12/22/20 22:59 06:59 14:59 Intake Total 710 300 Output Total 800 Balance -90 300 Lab Results - Last 24 hrs: Laboratory Results - last 24 hr 12/22/20 12/22/20 Range/Units 05:40 05:40 WBC 7.53 (3.98-10.04) K/mm3 RBC 4.24 (3.98-5.22) M/mm3 Hgb 12.9 D (11.2-15.7) gm/dl Hct 40.0 (34.1-44.9) % MCV 94.3 (79.4-94.8) fl MCH 30.4 (25.6-32.2) pg MCHC 32.3 (32.2-35.5) g/dl RDW Std Deviation 45.8 (36.4-46.3) fL Plt Count 242 (182-369) K/mm3 MPV 10.3 (9.4-12.3) fl Neut % (Auto) 54.4 (34.0-71.1) % Lymph % (Auto) 28.6 (19.3-51.7) % [place] % (Auto) 15.5 H (4.7-12.5) % Eos % (Auto) 0.7 (0.7-5.8) Baso % (Auto) 0.3 (0.1-1.2) % Neut # (Auto) 4.10 (1.56-6.13) K/mm3 Lymph # (Auto) 2.15 (1.18-3.74) K/mm3 [place] # (Auto) 1.17 H (0.24-0.36) K/mm3 Eos # (Auto) 0.05 (0.04-0.36) K/mm3 Baso # (Auto) 0.02 (0.01-0.08) K/mm3 Manual Slide Review Abnormal smear Sodium 147 H (136-145) mEq/L Potassium 3.7 (3.5-5.1) mEq/L Chloride 107 (98-107) mEq/L Carbon Dioxide 27 (21-32) mEq/L Anion Gap 16.7 H (5-15) BUN 5 L (7-18) mg/dL Creatinine 0.6 (0.55-1.02) mg/dL Est Cr Clr Drug Dosing 114.08 mL/min Estimated GFR (MDRD) > 60 (>60) mL/min BUN/Creatinine Ratio 8.3 L (14-18) Glucose 97 (70-99) mg/dL Calcium 9.3 D (8.5-10.1) mg/dL Magnesium 2.2 (1.8-2.4) mg/dL Total Bilirubin 0.2 (0.2-1.0) mg/dL AST 43 H (15-37) U/L ALT 46 (14-59) U/L Alkaline Phosphatase 51 (46-116) U/L Total Protein 8.0 (6.4-8.2) g/dl Albumin 3.9 (3.4-5.0) g/dl Globulin 4.1 gm/dL Albumin/Globulin Ratio 1.0 (1-2) Med Orders - Current: Current Medications Acetaminophen (Acetaminophen 325 Mg Tab) 650 mg PO Q4H PRN PRN Reason: Pain (Mild 1-3)/fever Hydrocodone Bitart/Acetaminophen (Acetaminophen/Hydrocodone 325-5 Mg Tab) 1 tab PO Q4H PRN PRN Reason: Pain (moderate 4-6) Docusate Sodium (Docusate Sodium 100 Mg Cap) 100 mg PO DAILY PRN PRN Reason: Constipation Enoxaparin Sodium (Enoxaparin 30 Mg/0.3 Ml Syringe) 30 mg SUBCUT DAILY [facility] Last Admin: 12/21/20 10:02 Dose: 30 mg Documented by: Famotidine (Famotidine 20 Mg Tab) 20 mg PO DAILY [facility] Last Admin: 12/21/20 10:02 Dose: 20 mg Documented by: Dextrose/Sodium Chloride (Dextrose 5%-Normal Saline) 1,000 mls @ 150 mls/hr IV ASDIRECTED [facility] Last Admin: 12/21/20 14:56 Dose: 150 mls/hr Documented by: Levetiracetam 1,000 mg/ Sodium (Chloride) 110 mls @ 400 mls/hr IV Q12H [facility] Last Admin: 12/21/20 20:36 Dose: 400 mls/hr Documented by: Lorazepam (Lorazepam 2 Mg/Ml Sdv) 2 mg IVPUSH Q4H PRN PRN Reason: Seizures Miscellaneous Information (Remove Nicotine Patch) 1 ea TRDERM DAILY [facility] Nicotine (Nicotine 21 Mg/24 Hr Patch) 21 mg TRDERM DAILY [facility] Last Admin: 12/21/20 20:01 Dose: 21 mg Documented by: Ondansetron HCl (Ondansetron 4 Mg Tab.Dis) 4 mg PO Q6H PRN PRN Reason: nausea, able to take PO Ondansetron HCl (Ondansetron 4 Mg/2 Ml Sdv) 4 mg IV Q6H PRN PRN Reason: Nausea/Vomiting Discontinued Medications Enoxaparin Sodium (Enoxaparin 30 Mg/0.3 Ml Syringe) 30 mg SUBCUT DAILY [facility] Last Admin: 12/20/20 19:11 Dose: Not Given Documented by: Dextrose/Sodium Chloride (Dextrose 5%-Normal Saline) 1,000 mls @ 150 mls/hr IV ASDIRECTED [facility] Last Admin: 12/20/20 09:48 Dose: 150 mls/hr Documented by: Levetiracetam 500 mg/ Sodium (Chloride) 105 mls @ 400 mls/hr IV ONETIME ONE Stop: 12/20/20 09:52 Last Admin: 12/20/20 09:48 Dose: 400 mls/hr Documented by: Levetiracetam 500 mg/ Sodium (Chloride) 105 mls @ 400 mls/hr IV ONETIME ONE Stop: 12/20/20 14:58 Last Admin: 12/20/20 17:44 Dose: Not Given Documented by: Levetiracetam 1,000 mg/ Sodium (Chloride) 110 mls @ 400 mls/hr IV Q12H [facility] Levetiracetam 1,000 mg/ Sodium (Chloride) 110 mls @ 400 mls/hr IV Q12H [facility] Last Admin: 12/21/20 07:54 Dose: 400 mls/hr Documented by: Lorazepam (Lorazepam 2 Mg/Ml Sdv) 1 mg IVPUSH ONETIME ONE Stop: 12/20/20 09:39 Last Admin: 12/20/20 09:40 Dose: 1 mg Documented by: Lorazepam (Lorazepam 0.5 Mg Tab) 0.5 mg PO Q2H PRN PRN Reason: Anxiety Last Admin: 12/21/20 22:37 Dose: 0.5 mg Documented by: Ondansetron HCl (Ondansetron 4 Mg/2 Ml Sdv) 4 mg IVPUSH ONETIME ONE Stop: 12/20/20 09:46 Last Admin: 12/20/20 09:45 Dose: 4 mg Documented by: Potassium Chloride (Potassium Chloride 20 Meq Tab.Er) 40 meq PO ONETIME ONE Stop: 12/21/20 10:35 Last Admin: 12/21/20 14:43 Dose: Not Given Documented by: Potassium Chloride (Potassium Chloride 20 Meq Tab.Er) 40 meq PO ONETIME ONE Stop: 12/21/20 14:31 Last Admin: 12/21/20 14:44 Dose: 40 meq Documented by: *Q Meaningful Use (DIS) - VTE *Q VTE Criteria *Q: 1
[2020-12-22] MEDS: levETIRAcetam 1,000 MG in Sodium Chloride 0.9% 100 ML IV SCH (07:43)
== END 2020-12-22 08:25 | disposition home or self-care (01) | DRG 101 ==
LOC: JD.ED 09:32 → JD.ICU 14:16
PROVIDERS: ADMIT Hospitalist; ATTEND Hospitalist
DX: G40.919 Epilepsy, unspecified, intractable, without status epilepticus (principal); E87.0 Hyperosmolality and hypernatremia; T42.6X2A Poisoning by other antiepileptic and sedative-hypnotic drugs, intentional self-harm, initial encounter; E87.6 Hypokalemia; H54.7 Unspecified visual loss; F41.0 Panic disorder [episodic paroxysmal anxiety]; Z20.822 Contact with and (suspected) exposure to COVID-19; F32.9 Major depressive disorder, single episode, unspecified; Z79.899 Other long term (current) drug therapy; Z88.8 Allergy status to other drugs, medicaments and biological substances
CPT/HCPCS: 36415; 70450; 70450-26; 71045; 71045-26; 80053; 80164; 80177; 81001; 82550; 82947; 83605; 83735; 85025; 86140; 96365; 96375; 99222; 99232; 99239; 99285; 99285-25; A9270-GY; J1650; J1953; J2060; J2405; J7042; U0002

== ENCOUNTER 2020-12-22 13:50 | Emergency (ER) | payer MEDICAID, OTHER ==
--- NOTE | 2020-12-22 15:48 | EDM.PDOCBH ---
ED HPI GENERAL MEDICAL PROBLEM - General Chief Complaint: Behavioral/Psych Stated Complaint: MENTAL HEALTH EVALUATION Time Seen by Provider: 12/22/20 14:31 Source of Information: Reports: Patient, Family History Limitations: Reports: No Limitations - History of Present Illness INITIAL COMMENTS - FREE TEXT/NARRATIVE: The patient presents with some confusion and bizarre behavior. She was just released from the hospital this morning and starting saying some bizarre things. She was saying things like she is the middle child and can't get . She has been saying other things. She was admitted her 2 days ago. She had a seizure and she was on depakote. Her depakote letter was high and it was changed to keppra. She is also agitated. She has a history of anxiety and depression and she is on zoloft. Onset: Gradual Duration: Hour(s): Severity: Moderate Improves with: Reports: None Worsens with: Reports: None Associated Symptoms: Reports: No Other Symptoms - Related Data Allergies Allergy/AdvReac Type Severity Reaction Status Date / Time carbamazepine [From Tegretol] Allergy Rash Verified 12/22/20 14:05 phenytoin [From Dilantin] Allergy Rash Verified 12/22/20 14:05 dilepital Allergy Rash Uncoded 12/22/20 14:05 Home Meds: Home Meds Sertraline [Zoloft] 25 mg PO DAILY 12/21/20 [History] Divalproex Sodium [Depakote] 1,000 mg PO BEDTIME #60 tablet. 12/22/20 [Rx] LORazepam [Ativan] 1 mg PO TID PRN #18 tablet 12/22/20 [Rx] levETIRAcetam [Keppra] 1,000 mg PO BID #60 tablet 12/22/20 [Rx] Past Medical History HEENT History: Reports: Impaired Vision Neurological History: Reports: Seizure Other Neuro History: epilepsy Psychiatric History: Reports: Anxiety, Depression, Panic Attack - Infectious Disease History Infectious Disease History: Reports: Chicken Pox, Hepatitis A Social & Family History - Family History Family Medical History: No Pertinent Family History - Tobacco Use Tobacco Use Status *Q: Current Every Day Tobacco User Years of Tobacco use: 12 Packs/Tins Daily: 1 - Caffeine Use Caffeine Use: Reports: Coffee - Recreational Drug Use Recreational Drug Use: Yes Drug Use in Last 12 Months: Yes Recreational Drug Type: Reports: Marijuana/Hashish - Living Situation & Occupation Living situation: Reports: , with Family 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) ED ROS GENERAL - Review of Systems Review Of Systems: See Below Constitutional: Reports: No Symptoms HEENT: Reports: No Symptoms Respiratory: Reports: No Symptoms Cardiovascular: Reports: No Symptoms Endocrine: Reports: No Symptoms GI/Abdominal: Reports: No Symptoms : Reports: No Symptoms Musculoskeletal: Reports: No Symptoms Skin: Reports: No Symptoms Neurological: Reports: No Symptoms Psychiatric: Reports: Anxiety ED EXAM, BEHAVIORAL HEALTH - Physical Exam Exam: See Below Exam Limited By: No Limitations General Appearance: Alert, No Apparent Distress Ears: Normal External Exam Nose: Normal Inspection Head: Atraumatic, Normocephalic Neck: Normal Inspection Respiratory/Chest: No Respiratory Distress, Lungs Clear, Normal Breath Sounds Cardiovascular: Regular Rate, Rhythm, No Edema, No Murmur GI/Abdominal: Soft, Non-Tender, No Organomegaly, No Mass Back Exam: Normal Inspection Extremities: Normal Inspection COURSE, BEHAVIORAL HEALTH COMP - Course Vital Signs: Last Vital Signs Temp 98.5 F 12/22/20 14:02 Pulse 97 12/22/20 14:02 Resp 16 12/22/20 14:02 BP 145/91 H 12/22/20 14:02 Pulse Ox 98 12/22/20 14:02 Orders, Labs, Meds: Active Orders 24 hr Category Date Time Status Cardiac Monitoring [RC] . DIRECTED Care 12/22/20 15:04 Active Laboratory Tests 12/22/20 12/22/20 12/22/20 Range/Units 15:16 15:25 15:25 WBC 8.64 (3.98-10.04) K/mm3 RBC 4.47 (3.98-5.22) M/mm3 Hgb 13.8 (11.2-15.7) gm/dl Hct 41.9 (34.1-44.9) % MCV 93.7 (79.4-94.8) fl MCH 30.9 (25.6-32.2) pg MCHC 32.9 (32.2-35.5) g/dl RDW Std Deviation 45.8 (36.4-46.3) fL Plt Count 255 (182-369) K/mm3 MPV 9.9 (9.4-12.3) fl Neut % (Auto) 67.0 (34.0-71.1) % Lymph % (Auto) 19.1 L (19.3-51.7) % Jackson % (Auto) 13.3 H (4.7-12.5) % Eos % (Auto) 0.1 L (0.7-5.8) Baso % (Auto) 0.2 (0.1-1.2) % Neut # (Auto) 5.78 (1.56-6.13) K/mm3 Lymph # (Auto) 1.65 (1.18-3.74) K/mm3 Jackson # (Auto) 1.15 H (0.24-0.36) K/mm3 Eos # (Auto) 0.01 L (0.04-0.36) K/mm3 Baso # (Auto) 0.02 (0.01-0.08) K/mm3 Sodium 143 (136-145) mEq/L Potassium 3.6 (3.5-5.1) mEq/L Chloride 104 (98-107) mEq/L Carbon Dioxide 27 (21-32) mEq/L Anion Gap 15.6 H (5-15) BUN 7 (7-18) mg/dL Creatinine 0.7 (0.55-1.02) mg/dL Est Cr Clr Drug Dosing 97.79 mL/min Estimated GFR (MDRD) > 60 (>60) mL/min BUN/Creatinine Ratio 10.0 L (14-18) Glucose 96 (70-99) mg/dL Calcium 9.4 (8.5-10.1) mg/dL Magnesium 2.2 (1.8-2.4) mg/dL Total Bilirubin 0.3 (0.2-1.0) mg/dL AST 47 H (15-37) U/L ALT 56 (14-59) U/L Alkaline Phosphatase 57 (46-116) U/L Total Protein 8.5 H (6.4-8.2) g/dl Albumin 4.3 (3.4-5.0) g/dl Globulin 4.2 gm/dL Albumin/Globulin Ratio 1.0 (1-2) TSH 3rd Generation 5.691 H (0.358-3.74) uIU/mL Urine Opiates Screen Negative (KYXELS=219) Ur Buprenorphine Scrn Negative (CUTOFF=10) Ur Oxycodone Screen Negative (SZX7GN=493) Urine Methadone Screen Negative (HSKCOM=602) Ur Propoxyphene Screen Negative (FHUHDQ=182) Ur Barbiturates Screen Negative (BSMEFY=607) Ur Tricyclics Screen Negative (JUYBDA=893) Ur Phencyclidine Scrn Negative (CUTOFF=25) Ur Amphetamine Screen Negative (FMAIER=531) U Methamphetamines Scrn Negative (NXHXFY=051) U Benzodiazepines Scrn Presumptive positive H (DNUVKQ=672) U Cocaine Metab Screen Negative (NKTJCL=944) U Marijuana (THC) Screen Presumptive positive H (CUTOFF=50) Ethyl Alcohol 0.00 (0.00) gm% Medications Discontinued Medications Generic Name Dose Route Start Last Admin Trade Name Freq PRN Reason Stop Dose Admin Divalproex Sodium 1,000 mg 12/22/20 15:58 Divalproex Sodium Delayed-Release 500 Mg Tab.Cr PO 12/22/20 15:59 ONETIME ONE Lorazepam 1 mg 12/22/20 16:00 Lorazepam 1 Mg Tab PO 12/22/20 16:01 ONETIME ONE Re-Assessment/Re-Exam: I ordered labs. Her CBC looks good Her AST is slightly elevated at 47. TSH is elevated at 5.691. Her urine drug screen was positive for benzos which she was given in the hospital and marijuana. I called [facility] in [place] and talked with Dr Zapien the neurologist [facility] orth[facility]ist. She felt this was from the keppra. She wanted me to stop it and get her back on the valproic acid. I will load her here and get her on 1,000 mg per day. I will also give her some ativan her and for at home. Departure - Departure Time of Disposition: 16:25 Disposition: Home, Self-Care 01 Condition: Good Clinical Impression: Agitation - Discharge Information *PRESCRIPTION DRUG MONITORING PROGRAM REVIEWED*: Not Applicable *COPY OF PRESCRIPTION DRUG MONITORING REPORT IN PATIENT KARTHIK: Not Applicable Prescriptions: LORazepam [Ativan] 1 mg PO TID PRN #18 tablet PRN Reason: Anxiety Divalproex Sodium [Depakote] 1,000 mg PO BEDTIME #60 tablet. Referrals: Matilde Castillo, OVER[facility] OPERATOR [Primary Care Provider] - Forms: ED Department Discharge Additional Instructions: Stop taking the keppra. Take the depakote 1,000mg at bedtime. Take the ativan 1mg every 8 hours as needed for any anxiety or agitation. Follow up with Dr Wynn. Please return if you are worse. Sepsis Event Note (ED) - Evaluation Sepsis Screening Result: No Definite Risk - Focused Exam Vital Signs: Vital Signs Temp Pulse Resp BP Pulse Ox 12/22/20 14:02 98.5 F 97 16 145/91 H 98 - My Orders Last 24 Hours: My Active Orders 12/22/20 15:04 Cardiac Monitoring [RC] . DIRECTED - Assessment/Plan Last 24 Hours: My Active Orders 12/22/20 15:04 Cardiac Monitoring [RC] . DIRECTED
[2020-12-22] MEDS ORDERED: Divalproex Sodium Delayed-Release 500 MG Tab.CR PO ONE (15:58)
[2020-12-22] MEDS ORDERED: LORazepam 1 MG Tab PO ONE (16:00)
== END 2020-12-22 16:36 | disposition home or self-care (01) ==
LOC: JD.ED 13:50
DX: R45.1 Restlessness and agitation (principal); F41.8 Other specified anxiety disorders; Z79.899 Other long term (current) drug therapy; Z88.8 Allergy status to other drugs, medicaments and biological substances; Z72.0 Tobacco use
CPT/HCPCS: 36415; 80053; 80306; 80307; 83735; 84443; 85025; 99284; A9270; 99283

== ENCOUNTER 2021-02-01 19:47 | Emergency (ER) | payer MEDICAID, OTHER ==
[2021-02-01] MEDS ORDERED: 50% Dextrose in Water 50 ML Syringe IVPUSH ONE (20:01)
--- NOTE | 2021-02-01 20:22 | EDM.PDOC ---
ED HPI GENERAL MEDICAL PROBLEM - General Chief Complaint: Abdominal Pain Stated Complaint: [facility] Time Seen by Provider: 02/01/21 20:00 Source of Information: Reports: Patient, RN Notes Reviewed History Limitations: Reports: No Limitations - History of Present Illness INITIAL COMMENTS - FREE TEXT/NARRATIVE: Patient is a 36-year-old female who presents to the ER via [facility] for the evaluation of generally feeling unwell. Patient has a history of seizures, and states that her neurologist recently decreased her Depakote medication to 750 mg twice daily versus the 2000 mg twice daily she was taking. She states that they told her that she was "overdosing" on the Depakote. She notes that she has have repeat labs done in about 2 weeks. She did have some seizures on Saturday, but has not had any since then. She states that she feels generally unwell. She did have Covid back in December 2020. She is having some left lower quadrant abdominal pain, she is not having any fevers or chills, cough or shortness of breath. She has not had any sort of abdomen surgeries. States that she is not also had any sort of nausea/vomiting/diarrhea. - Related Data Allergies Allergy/AdvReac Type Severity Reaction Status Date / Time carbamazepine [From Tegretol] Allergy Rash Verified 02/01/21 19:55 phenytoin [From Dilantin] Allergy Rash Verified 02/01/21 19:55 dilepital Allergy Rash Uncoded 02/01/21 19:55 Home Meds: Home Meds Sertraline [Zoloft] 25 mg PO DAILY 12/21/20 [History] Divalproex Sodium [Depakote] 1,000 mg PO BEDTIME #60 tablet. 12/22/20 [Rx] LORazepam [Ativan] 1 mg PO TID PRN #18 tablet 12/22/20 [Rx] levETIRAcetam [Keppra] 1,000 mg PO BID #60 tablet 12/22/20 [Rx] Past Medical History HEENT History: Reports: Impaired Vision Neurological History: Reports: Seizure Other Neuro History: epilepsy Psychiatric History: Reports: Anxiety, Depression, Panic Attack - Infectious Disease History Infectious Disease History: Reports: Chicken Pox, Hepatitis A, Novel Coronavirus (December 2020) Social & Family History - Family History Family Medical History: No Pertinent Family History - Tobacco Use Tobacco Use Status *Q: Unknown Ever Used Tobacco - Caffeine Use Caffeine Use: Reports: Coffee - Living Situation & Occupation Living situation: Reports: , with Family 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 ED EXAM, GI/ABD - Physical Exam Exam: See Below Exam Limited By: No Limitations General Appearance: Alert, WD/WN, No Apparent Distress Respiratory/Chest: No Respiratory Distress, Lungs Clear, Normal Breath Sounds, No Accessory Muscle Use, Chest Non-Tender Cardiovascular: Normal Peripheral Pulses, Regular Rate, Rhythm, No Edema GI/Abdominal Exam: Normal Bowel Sounds, Soft, No Distention, No Mass, Tender (LLQ abd pain) Extremities: Normal Inspection, Normal Capillary Refill Neurological: Alert, Oriented, Normal Cognition, No Motor/Sensory Deficits Psychiatric: Normal Affect, Normal Mood Skin Exam: Warm, Dry, Intact, Normal Color, No Rash Course - Vital Signs Last Recorded V/S: Last Vital Signs Temp 98.6 F 02/01/21 20:02 Pulse 112 H 02/01/21 20:02 Resp 17 02/01/21 20:02 BP 148/65 H 02/01/21 20:02 Pulse Ox 98 02/01/21 20:02 - Orders/Labs/Meds Orders: Active Orders 24 hr Category Date Time Status Peripheral IV Care [RC] . DIRECTED Care 02/01/21 20:18 Ordered Abdomen 1V Flat [CR] Stat Exams 02/01/21 20:17 Ordered Abdomen Pelvis w Cont [CT] Stat Exams 02/01/21 20:53 Ordered Sodium Chloride 0.9% [Saline Flush] Med 02/01/21 20:18 Active 10 ml FLUSH ASDIRECTED PRN Peripheral IV Insertion Adult [OM.PC] Routine Oth 02/01/21 20:18 Ordered Medication Orders Sodium Chloride (Sodium Chloride 0.9% 10 Ml Syringe) 10 ml FLUSH ASDIRECTED PRN PRN Reason: Keep Vein Open Last Admin: 02/01/21 21:44 Dose: 10 ml Documented by: Admin: 02/01/21 20:30 Dose: 10 ml Documented by: SALIMA Labs: Laboratory Tests 02/01/21 02/01/21 02/01/21 Range/Units 19:55 19:55 20:17 WBC 5.48 (3.98-10.04) K/mm3 RBC 4.20 (3.98-5.22) M/mm3 Hgb 13.2 (11.2-15.7) gm/dl Hct 39.3 (34.1-44.9) % MCV 93.6 (79.4-94.8) fl MCH 31.4 (25.6-32.2) pg MCHC 33.6 (32.2-35.5) g/dl RDW Std Deviation 48.2 H (36.4-46.3) fL Plt Count 257 (182-369) K/mm3 MPV 10.2 (9.4-12.3) fl Neutrophils % (Manual) 40 (40-60) % Band Neutrophils % 0 (0-10) % Lymphocytes % (Manual) 35 (20-40) % Atypical Lymphs % 0 % Monocytes % (Manual) 23 H (2-10) % Eosinophils % (Manual) 1 (0.7-5.8) % Basophils % (Manual) 1 (0.1-1.2) Platelet Estimate Adequate RBC Morph Comment Normal Sodium 137 (136-145) mEq/L Potassium 3.4 L (3.5-5.1) mEq/L Chloride 100 (98-107) mEq/L Carbon Dioxide 26 (21-32) mEq/L Anion Gap 14.4 (5-15) BUN 8 (7-18) mg/dL Creatinine 0.7 (0.55-1.02) mg/dL Est Cr Clr Drug Dosing 96.86 mL/min Estimated GFR (MDRD) > 60 (>60) mL/min BUN/Creatinine Ratio 11.4 L (14-18) Glucose 75 (70-99) mg/dL POC Glucose (70-99) mg/dL Calcium 9.0 (8.5-10.1) mg/dL Total Bilirubin 0.2 (0.2-1.0) mg/dL AST 16 (15-37) U/L ALT 19 (14-59) U/L Alkaline Phosphatase 49 (46-116) U/L C-Reactive Protein 3.2 H* (<1.0) mg/dL Total Protein 7.9 (6.4-8.2) g/dl Albumin 3.8 (3.4-5.0) g/dl Globulin 4.1 gm/dL Albumin/Globulin Ratio 0.9 L (1-2) Urine Color (Yellow) Urine Appearance (Clear) Urine pH (5.0-8.0) Ur Specific [place] (1.005-1.030) Urine Protein (Negative) Urine Glucose (UA) (Negative) Urine Ketones (Negative) Urine Occult Blood (Negative) Urine Nitrite (Negative) Urine Bilirubin (Negative) Urine Urobilinogen (0.2-1.0) Ur Leukocyte Esterase (Negative) Urine RBC (0-5) /hpf Urine WBC (0-5) /hpf Ur Squamous Epith Cells (0-5) /hpf Urine Bacteria (FEW) /hpf Urine Mucus (FEW) /hpf 02/01/21 02/01/21 Range/Units 21:00 21:02 WBC (3.98-10.04) K/mm3 RBC (3.98-5.22) M/mm3 Hgb (11.2-15.7) gm/dl Hct (34.1-44.9) % MCV (79.4-94.8) fl MCH (25.6-32.2) pg MCHC (32.2-35.5) g/dl RDW Std Deviation (36.4-46.3) fL Plt Count (182-369) K/mm3 MPV (9.4-12.3) fl Neutrophils % (Manual) (40-60) % Band Neutrophils % (0-10) % Lymphocytes % (Manual) (20-40) % Atypical Lymphs % % Monocytes % (Manual) (2-10) % Eosinophils % (Manual) (0.7-5.8) % Basophils % (Manual) (0.1-1.2) Platelet Estimate RBC Morph Comment Sodium (136-145) mEq/L Potassium (3.5-5.1) mEq/L Chloride (98-107) mEq/L Carbon Dioxide (21-32) mEq/L Anion Gap (5-15) BUN (7-18) mg/dL Creatinine (0.55-1.02) mg/dL Est Cr Clr Drug Dosing mL/min Estimated GFR (MDRD) (>60) mL/min BUN/Creatinine Ratio (14-18) Glucose (70-99) mg/dL POC Glucose 98 (70-99) mg/dL Calcium (8.5-10.1) mg/dL Total Bilirubin (0.2-1.0) mg/dL AST (15-37) U/L ALT (14-59) U/L Alkaline Phosphatase (46-116) U/L C-Reactive Protein (<1.0) mg/dL Total Protein (6.4-8.2) g/dl Albumin (3.4-5.0) g/dl Globulin gm/dL Albumin/Globulin Ratio (1-2) Urine Color Yellow (Yellow) Urine Appearance Clear (Clear) Urine pH 7.0 (5.0-8.0) Ur Specific [place] 1.015 (1.005-1.030) Urine Protein Negative (Negative) Urine Glucose (UA) Negative (Negative) Urine Ketones 2+ H (Negative) Urine Occult Blood Negative (Negative) Urine Nitrite Negative (Negative) Urine Bilirubin Negative (Negative) Urine Urobilinogen 0.2 (0.2-1.0) Ur Leukocyte Esterase Negative (Negative) Urine RBC 0-5 (0-5) /hpf Urine WBC 0-5 (0-5) /hpf Ur Squamous Epith Cells 10-20 H (0-5) /hpf Urine Bacteria Few (FEW) /hpf Urine Mucus Few (FEW) /hpf Meds: Medications Generic Name Dose Route Start Last Admin Trade Name Freq PRN Reason Stop Dose Admin Sodium Chloride 10 ml 02/01/21 20:18 02/01/21 21:44 Sodium Chloride 0.9% 10 Ml Syringe FLUSH 10 ml ASDIRECTED PRN Administration Keep Vein Open Discontinued Medications Generic Name Dose Route Start Last Admin Trade Name Freq PRN Reason Stop Dose Admin Dextrose/Water 25 ml 02/01/21 20:01 02/01/21 20:07 50% Dextrose In Water 50 Ml Syringe IVPUSH 02/01/21 20:02 25 ml ASDIRECTED ONE Administration Iopamidol 100 ml 02/01/21 21:29 02/01/21 21:43 Iopamidol 612 Mg/Ml 100 Ml Bottle IVPUSH 02/01/21 21:30 100 ml ONETIME ONE Administration - Re-Assessments/Exams Free Text/Narrative Re-Assessment/Exam: 02/01/21 20:22 Patient presents to the ER for the evaluation of her general feelings of being unwell. Was made aware by nursing staff that her blood sugar at initial triage was 68. She was given a half an amp of D50 for this. Notes that she is not really been eating or drinking much today due to her feelings of being unwell. We will go ahead and get some basic labs, and an abdomen x-ray for further evaluation. 02/01/21 20:54 The patient's labs are fairly unremarkable, her blood sugar did come up to normal limits at this time. KUB x-ray is also demonstrated some air in the colon, but not too much stool in the left side of her abdomen. White count is not elevated, but her CRP is mildly elevated at 3.2 we will go ahead and just get an abdomen pelvis CT with IV contrast for ongoing management, still awaiting the urinalysis from the patient as well. 02/01/21 21:16 Urinalysis is negative for infection. 02/01/21 22:40 CT was negative for any acute focal abnormalities that would be causing her left-sided abdominal pain. There is a multilocular cystic structure in the right adnexa measuring 6 x 3 cm, ultrasound could be helpful for further evaluation but she can follow-up with her regular provider or [facility] for this. Patient was made aware and she will be discharged home with general recommendations. Departure - Departure Time of Disposition: 22:41 Disposition: Home, Self-Care 01 Condition: Good Clinical Impression: Left lower quadrant abdominal pain - Discharge Information *PRESCRIPTION DRUG MONITORING PROGRAM REVIEWED*: No *COPY OF PRESCRIPTION DRUG MONITORING REPORT IN PATIENT KARTHIK: No Instructions: Abdominal Pain, Adult, [id number] Forms: ED Department Discharge Additional Instructions: You were evaluated in the ER today for your lower abdominal discomfort. Laboratory evaluation, abdomen x-rays and abdomen CT were unremarkable for any sign of infectious process, or any other worrisome process of be the cause of your left lower quadrant abdominal pain. You did have a a right ovarian cyst, that you may want to follow-up with your regular provider or [facility] [facility] for ongoing management regarding outpatient ultrasound for evaluation. You may take 500 mg Tylenol or 600 mg ibuprofen every 6 hours as needed for ongoing pain management. Do not hesitate to return to the ER at any time if symptoms change or worsen. Sepsis Event Note (ED) - Evaluation Sepsis Screening Result: No Definite Risk - Focused Exam Vital Signs: Vital Signs Temp Pulse Resp BP Pulse Ox 02/01/21 20:02 98.6 F 112 H 17 148/65 H 98 - My Orders Last 24 Hours: My Active Orders 02/01/21 20:17 Abdomen 1V Flat [CR] Stat 02/01/21 20:18 Peripheral IV Care [RC] . DIRECTED Sodium Chloride 0.9% [Saline Flush] 10 ml FLUSH ASDIRECTED PRN Peripheral IV Insertion Adult [OM.PC] Routine 02/01/21 20:53 Abdomen Pelvis w Cont [CT] Stat - Assessment/Plan Last 24 Hours: My Active Orders 02/01/21 20:17 Abdomen 1V Flat [CR] Stat 02/01/21 20:18 Peripheral IV Care [RC] . DIRECTED Sodium Chloride 0.9% [Saline Flush] 10 ml FLUSH ASDIRECTED PRN Peripheral IV Insertion Adult [OM.PC] Routine 02/01/21 20:53 Abdomen Pelvis w Cont [CT] Stat
[2021-02-01] MEDS: Sodium Chloride 0.9% 10 ML Syringe FLUSH PRN ×2 (20:30→21:44)
[2021-02-01] MEDS ORDERED: Iopamidol 612 MG/ML 100 ML Bottle IVPUSH ONE (21:29)
--- NOTE | 2021-02-02 07:26 | CR ---
Abdomen: Supine view of the abdomen was obtained. Comparison: No prior abdominal x-ray is available. Bowel gas pattern is normal. No abnormal calcifications or soft tissue abnormality is seen. Bony structures appear within normal limits. Impression: 1. Nothing acute is seen on supine abdominal x-ray. Diagnostic code #1
--- NOTE | 2021-02-02 07:30 | CT ---
CT abdomen and pelvis Technique: Multiple axial sections were obtained from above the dome of the diaphragm inferiorly through the pubic symphysis. Intravenous contrast was utilized. Delayed images were obtained through the bladder. Reconstructed coronal and sagittal images were obtained. Comparison: No prior abdominal imaging is available. Findings: Visualized lung bases show nothing acute. Decreased density is noted within the liver compatible with fatty infiltration. Gallbladder contains no calcified gallstones. Spleen size is normal. Adrenal glands show no nodule. Pancreas shows no discrete abnormality. Kidneys show symmetric contrast enhancement. No hydronephrosis or mass is seen. Delayed images show contrast within the distal ureters as well as contrast being seen within the bladder. Abdominal aorta shows no aneurysm. No retroperitoneal adenopathy or mesenteric abnormalities are seen. Appendix is seen which is normal. No pelvic mass or adenopathy is seen. Slight cystic change is seen within the right ovary. Largest cyst measures 3.1 cm. No pelvic mass or adenopathy is seen. No free fluid or inflammatory change is appreciated. Bone window settings were reviewed which appear within normal limits for the patient's age. Impression: 1. Fatty infiltration within the liver. 2. Mild cystic change within the right ovary with largest cyst measuring 3.1 cm. 3. Nothing acute is otherwise seen. Diagnostic code #2 I agree with preliminary report from [facility], finalized on 02/01/21, 11:31 PM CDT, code 1
== END 2021-02-01 23:02 | disposition home or self-care (01) ==
LOC: JD.ED 19:47
DX: R10.32 Left lower quadrant pain (principal); Z88.8 Allergy status to other drugs, medicaments and biological substances; Z86.16 Personal history of COVID-19
CPT/HCPCS: 36415; 74018; 74018-26; 74177; 74177-26; 80053; 81001; 82947; 85007; 85027; 86140; 96374; 99284; 99285-25; Q9967